=== PATIENT | female | born 1995 | race Caucasian/White ===

== ENCOUNTER 2021-01-25 09:54 | Emergency (ER) | payer SELFPAY ==
[2021-01-25 10:00] VITALS: PULSE 108; RESP 14; TEMP 36.4; O2SAT 98; BMI 43.5
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
[2021-01-25 10:30] VITALS: PULSE 103; O2SAT 98
== END 2021-01-25 11:46 | disposition home or self-care (01) ==
PROVIDERS: Emergency Provider Physician Assistant
DX: S13.9XXA Sprain of joints and ligaments of unspecified parts of neck, initial encounter (principal); V89.2XXA Person injured in unspecified motor-vehicle accident, traffic, initial encounter
CPT/HCPCS: 72125; 99282

== ENCOUNTER 2025-02-08 09:16 | Emergency (ER) | payer OTHER, SELFPAY ==
--- NOTE | 2025-02-08 09:18 | USR_ITS ---
PROCEDURE INFORMATION: Exam: US First Trimester, Transabdominal and US , Transvaginal Exam date and time: 02/08/2025 9:45 AM Age: 30 years old Clinical indication: Lmp or gestational age (in weeks): 08/19/2025; Antepartum complications; Bleeding; ; Additional info: Vaginal bleeding, early LABS AND CLINICAL REPORTS: Last menstrual period start date: Unknown Gestational age (Established): 12 w 4 d Estimated due date (Established): 08/19/2025 TECHNIQUE: Imaging protocol: Real-time transabdominal obstetrical ultrasound of the maternal pelvis and a first trimester , less than 14 weeks 0 days, with image documentation. Transvaginal imaging was used for better evaluation of the fetus, adnexa, and/or cervix. COMPARISON: [place] [id number] 01/03/2019 8:11 AM FINDINGS: GESTATION: Gestation: Single intrauterine gestation. Embryo/ cardiac activity (BPM): 163 bpm Extra-embryonic membranes/Placenta: Small subchorionic fluid collection suggestive of hemorrhage; measures 2.1 x 0.8 x 0.8 cm. BIOMETRY: Gestational age (AUA): 12 weeks 5 days MATERNAL: Uterus: Otherwise unremarkable. Cervix: Unremarkable as imaged. Right ovary/adnexa: Unremarkable. Normal spectral waveforms. Left ovary/adnexa: Obscured by lack of adequate acoustic window. Intraperitoneal space: No visible pelvic free fluid. US/US OB <= 14 weeks fetus [id number] IMPRESSION: 1. Single living intrauterine measuring 12 weeks 5 days by ultrasound. 2. Suggested small subchorionic hemorrhage. Recommend continued attention on follow-up imaging.
[2025-02-08 09:19] VITALS: BP 137/80; PULSE 105; RESP 14; TEMP 36.8; O2SAT 98; BMI 27.1
--- OUTSIDE RECORDS SUMMARY | 2025-02-08 09:23 | XMS_ITS | Continuity of Care Document ---
Author Organization BIRDIE Reji Mccullough [facility]aud[facility], [facility] ([facility]) Address [address] [place] [address] Care Team Providers Care Radio Communication Coordinator Name Role Phone TWAN WOLFE Primary Care Provider Assessment No assessment recorded. Plan of Treatment Reminders Order Date Submit Date Provider Last Modified By Organization Details Last Modified Time Details Appointments RETURN OB 2024 03:00P M Twan Wolfe MD Not available Not available Not available RETURN OB 2025 03:00P M Twan Wolfe MD Not available Not available Not available ULTRASO UND 2025 03:15P M ULTRASOUND Not available Not available Not available RETURN OB 2025 03:00P M Twan Wolfe MD Not available Not available Not available RETURN OB 2025 03:00P M Twan Wolfe MD Not available Not available Not available RETURN OB 2025 03:00P Matheus Wolfe MD Not available Not available Not available RETURN OB 2025 03:00P M Twan Wolfe MD Not available Not available Not available RETURN OB 2025 03:00P Matheus Wolfe MD Not available Not available Not available RETURN OB 2025 03:00P Matheus Wolfe MD Not available Not available Not available RETURN OB 2025 03:00P Matheus Wolfe MD Not available Not available Not available RETURN OB 2025 03:00P Matheus Wolfe MD Not available Not available Not available RETURN OB 2025 03:00P M Twan Wolfe MD Not available Not available Not available Lab None recorde d. Referral None recorde d. Procedures None recorde d. Surgeries None recorde d. Imaging None recorde d. Medication Orders None recorde d. Patient TargetsNo targets recorded. Patient InstructionsNo instructions recorded. Reason for Referral None Reported. Results Created Date Observation Date Name Description Value Unit Range Abnormal Flag Note LastModifiedBy Organization Detail LastModifiedTime 01/03/2001/01/2025 US, obste tric, 2nd trime ster No observ ation record ed. [email or web address] [address], [address], 01/02/2025 16:12:22 Result Notes None recorded. Problems Name Problem SNOMED Code Status Onset Date Resolution Date Notes Provider Name and Address Organization Details Recorded Time Hypothyroid ism 73086200 Active 2021 Xi hills [facility]CClaudia 4 15:39:59 Migraine 23432005 Active 2021 Migraine Headache Xi [facility].CClaudia 4 15:40:07 Anemia 738079303 Active 2023 CHERELLE ESTES [facility], L.L.CClaudia 4 17:20:47 Diarrhea 54235033 Active 2024 Eldon Block [address], [address] , [facility], L.L.CClaudia 5 09:29:04 26770256 Active 2024 DUSTIN Valdovinos [facility].L.CClaudia 5 12:56:44 Problem Notes None recorded. Procedures Surgical History Date Name Laterality Status Provider Name and Address Organization Details Recorded Time 01/02/20 Date of Last Pap Smear completed CHERELLE ESTES [facility] 01/01/2025 15:21:03 [facility] 08:10[facility]21 [facility] 08:10:32 Imaging Results None recorded. Procedure Notes None recorded. Medical Equipment None Reported. Allergies No known drug allergies Medications Name Sig Start Date Stop Date Status Note LastModified by Organization Details LastModified Time Vitamin C 500 mg tablet Take 1 tablet every day by oral route before meal(s), for anemia, take with Iron. 06/23 completed Not Available Not Available Not Available azithromy abraham 250 mg tablet TAKE 2 TABLETS (500 MG) BY ORAL ROUTE ONCE DAILY FOR 1 DAY THEN 1 TABLET (250 MG) BY ORAL ROUTE ONCE DAILY FOR 4 DAYS 12/04 completed Not Available Not Available Not Available fluconazo le 150 mg tablet Take 1 tablet every day by oral route for 1 day, for johny vaginiti s. May repeat in 1 week. 11/28 completed Not Available Not Available Not Available hydrocodo ne 5 mg-acetam inophen 325 mg tablet Take ONE TO TWO tablets BY MOUTH EVERY SIX hours as needed for pain 09/10 completed Not Available Not Available Not Available Nystop 100,000 unit/gram topical powder apply ONE GRAM ON SKIN TWICE DAILY 09/10 completed Not Available Not Available Not Available diphenoxy late-atro pine 2.5 mg-0.025 mg tablet TAKE 2 TABLETS BY MOUTH FOUR TIMES DAILY NEEDED FOR SEVERE DIARRHEA 11/28 completed Not Available Not Available Not Available metronida zole 500 mg tablet Take 1 tablet twice a day by oral route for 7 days. 09/24 completed Not Available Not Available Not Available sulfameth oxazole 800 mg-trimet hoprim 160 mg tablet TAKE ONE TABLET BY MOUTH TWICE DAILY 09/10 completed Not Available Not Available Not Available amoxicill in 500 mg tablet TAKE 1 TABLET BY MOUTH THREE TIMES DAILY UNTIL ALL TAKEN 09/10 completed Not Available Not Available Not Available levothyro xine 50 mcg tablet TAKE 1 TABLET BY MOUTH DAILY 12/18 completed STATES SHE DOES NOT TAKE THIS PRESCRIB ED. Not Available Not Available Not Available cephalexi n 500 mg capsule TAKE ONE CAPSULE BY MOUTH THREE TIMES DAILY; start THE DAY AFTER surgery 09/10 completed Not Available Not Available Not Available ferrous sulfate 325 mg (65 mg iron) tablet Take 1 tablet every day by oral route before meal(s), for anemia, take with vitamin C. 12/18 completed Not Available Not Available Not Available promethaz ine 25 mg tablet TAKE ONE TABLET BY MOUTH EVERY SIX hours 01/29 completed Not Available Not Available Not Available omeprazol e 20 mg capsule,d elayed release daily for upset stomach 09/10 completed Not Available Not Available Not Available [facility] Levothyro xine Sodium daily 09/10 completed duplicat e medicati on on chart Not Available Not Available Not Available Gummies active Not Available Not Available Not Available Vitals Date Recorded Body height Body mass index (BMI) Body weight Body temperature Heart rate Oxygen saturation Systolic And Diastolic Provider Name and Address Organization Details Last Updated DateTime 185.42 cm 27.2 kg/m2 24887.0 3 g 98.4 [degF] 98 /min 98 % 128/72 mm[Hg] Tanja Funk [facility] 16:44:36 Social History Question Answer Notes LastModified by Organizat ion Details LastModified Time Tobacco Smoking Status Never Smoker [facility] 09/11/2023 08:10:07 Are You Blind Or Do You Have Difficulty Seeing? No Information not available 12/18/2024 What Is Your Level Of Caffeine Consumption? Occasional Information not available 12/18/2024 Are You Deaf Or Do You Have Serious Difficulty Hearing? No Information not available 12/18/2024 What Was The Date Of Your Most Recent Tobacco Screening? 12/30/2024 [email or web address] Information not available 12/30/2024 Do You Have Difficulty Walking Or Climbing Stairs? No Information not available 12/18/2024 Sex: Unknown Functional Status Question Answer Note LastModified by Organizat ion Details LastModified Time Do you use any illicit or recreational drugs? Yes [email or web address] Information not available 09/11/2023 What is your level of alcohol consumption? None Information not available 12/18/2024 Are you currently employed? Yes Driss N[employer] Information not available 12/18/2024 Are you able to walk independently without assistance or assistive devices? YESWOREST Information not available 12/18/2024 Do you have difficulty doing errands alone? No Information not available 12/18/2024 Are you able to care for yourself independently? No Information not available 12/18/2024 Do you have difficulty dressing, bathing, grooming, or toileting? No Information not available 12/18/2024 Mental Status Question Answer Note LastModified by Organization D etails LastModified Time Do you have difficulty concentrating, remembering or making decisions? No Information no t available 12/18/2024 Family History Relationship Description Onset Age of this Age Resolved Age Notes LastModified by Organization Details LastModified Time Father Type 2 diabetes mellitus [email or web address] Not available 13:02:18 Father History of cerebrovascu lar accident [email or web address] Not available 12/18/2024 13:02:34 Medical History Condition Response Coronary Artery Disease N Other N Gout N Kidney Stones N Blood Diseases N Hyperthyroidism N Breast Cancer N Blood Transfusion N Depression N Hypothyroidism Y Lung Disease N COPD N Developmental or Behavioral Disorders N Defects or Inherited Disease N Breast Problem N Difficulty Swallowing N Anesthesia Complications N Anxiety Disorder N Meniere's disease N Muscle, Joint, or Bone Problems N Vision or Eye Problems N Arthritis N Infertility N Polyps N Cancer N Stroke N Varicosities N Endometriosis N Bladder or Kidney Problems N High Cholesterol N Liver Disease N Fibromyalgia N Headaches Y Kidney Disease N Allergies/Hayfever N Heart Problems N Ear or Hearing Problems N Fatigue Y Hospitalizations N Thyroid Problems N GI Problems N ADD/ADHD N Skin Problems N Eating Disorder N Anemia N Constipation Y Mental Illness N Ovarian Cancer N Diabetes N Bedwetting N Seizures/Epilepsy N Tuberculosis N Pain N Eczema N Diverticulitis N Abuse/Domestic Violence N Asthma N Reflux/GERD N Hepatitis N Heart Disease N Pulmonary Embolism N Pre-Eclampsia N Hypertension N Chronic Ear Infections N Osteoporosis N Chicken Pox N Autism Spectrum Disorder (ASD) N Thrombophilias N Gynecological History Statement/Question Response Date of Last Pap Smear 01/01/2025 Obstetrics History GPAL:G 2 P 1 0 0 1 Type Value Full Term 1 Living 1 Total 2 Immunizations Vaccine Type Date Status Note Provider Nam e and Address Organization Details Recorded Time HPV9 8 completed Not Available [facility] 10/14/2022 02:51:20 Tdap 9 completed Not Available [facility] 10/14/2022 02:51:20 Influenza, split virus, trivalent, preservative 8 completed Not Available [facility] 10/14/2022 02:51:20 Influenza, split virus, trivalent, preservative 9 completed Not Available [facility] 10/14/2022 02:51:20 Influenza, split virus, trivalent, preservative 7 completed Not Available [facility] 10/14/2022 02:51:20 Influenza, split virus, quadrivalent, preservative 5 completed [facility] LClaudiaLClaudiaCClaudia 09/11/2023 08:07:08 MMR 6 completed [facility], LClaudiaLClaudiaCClaudia 09/11/2023 08:07:08 Tdap 4 completed [facility], LClaudiaLClaudiaCClaudia 09/11/2023 08:07:08 DTP 6 completed [facility], LClaudiaLClaudiaCCaludia 09/11/2023 08:07:08 DTP 5 completed [facility], LClaudiaLClaudiaCClaudia 09/11/2023 08:07:08 DTP 5 completed Xi Pliler null, [facility] 09/11/2023 08:07:09 Hep B, unspecified formulation 6 completed Xi Pliler null, [facility] 09/11/2023 08:07:09 Hep B, unspecified formulation 5 completed Xi Pliler null, [facility] 09/11/2023 08:07:09 Hep B, unspecified formulation 5 completed Xi Pliler null, [facility] 09/11/2023 08:07:09 OPV, trivalent 6 completed Xi Pliler null, [facility] 09/11/2023 08:07:09 OPV, trivalent 5 completed Xi Pliler null, [facility] 09/11/2023 08:07:09 OPV, trivalent 7 completed Xi Pliler null, [facility] 09/11/2023 08:07:09 DTP-Hib 7 completed Xi Pliler null, [facility] 09/11/2023 08:07:09 Hib (PRP-T) 5 completed Xi Pliler null, [facility] 09/11/2023 08:07:09 Hib (PRP-T) 5 completed Xi Pliler null, [facility] 09/11/2023 08:07:09 Past Encounters Encounter ID Performer Location Encounter Start Date Encounter Closed Date Diagnosis/Indication Diagnosis SNOMED-CT Code Diagnosis ICD10 Code Diagnosis IMO Codes Diagnosis Note [id number] NATALIE ÁLVAREZ [facility] ([facility]) [address] [place] [id number] 11/28/2024 16:31:50 11/28/2024 18:20:20 Chronic constipation 261662674 K59.09 804564 Advised to take miralax daily as well as citrucel. Increase fiber and water intake. Patient will make a follow up with PCP to further evaluate. RTC with any new or worsening symptoms. Health Concerns Section Related Observation LastModified by Organization Detai ls LastModified Time None Recorded Concern Status LastModified by Organization Details LastModified Time None Recorded Payers Encounter Date Sequence Insurance Name Policy Number Policy Pride Covered Member ID Pride Member ID Guarantor Name 11/28/2024 1 [employer] [place] Allie Bolaños Anthony [id number] 1 Allie Bolaños Anthony OBGyn Episode Ob Episode Information Episode Created Date Number of Fetuses Patient Bloodtype Patient rh Status Prepregnancy Weight lbs Domestic Partner Domestic Partner Phone 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 Status 12/19/19 25 1 A Positive Srikatnh OPEN Fetus Data First Name Last Name Admitted to NICU Weight (g) Sex Living Outcome Pediatric Complications Fetus ID Race Codes Race Delivery Type [id number] Jm Calculation Initial Jm Date Initial Exam Date Initial Exam Provider Initial Ultrasound Date Last Menstrual Period Date Ultra Sound Weeks Gestation 12/18/2024 01/01/2025 7 Eighteen To Twenty Week Jm Update Ultra Sound Date Fundal Height At Umbil Quickening Date Ultra Sound Latest Weeks Gestation Final Jm Confirmed By Final Jm Confirmed Date Final Jm Date Ultra Sound Latest Days Gestation 01/02/20 25 7 [email or web address] 01/01/2025 06/03/2 026 1 Pre-sathish Flowsheet Flowsheet Date 12/18/2024 Cerrato Score Blood Edema Fundus Height Fundus Units Glucose Ketones Leukocytes Nitrite Labor Signs Protein Cervic Dilation Cervic Effacement Cervic Station Type Weight in lbs Pre/Post Dialysis Refused BP Diastolic BP Location Tested BP Systolic BP Type Fetus Heart Rate Present Fetus Movement Comments OBI Flowsheet Date 12/18/2024 Cerrato Score Blood Edema Fundus Height Fundus Units Glucose Ketones Leukocytes Nitrite Labor Signs Protein Cervic Dilation Cervic Effacement Cervic Station Type Weight in lbs Pre/Post Dialysis Refused BP Diastolic BP Location Tested BP Systolic BP Type Fetus Heart Rate Present Fetus Movement Comments Flowsheet Date 12/30/2024 Cerrato Score Blood Edema Fundus Height Fundus Units Glucose Ketones Leukocytes Nitrite Labor Signs Protein Cervic Dilation Cervic Effacement Cervic Station Type Weight in lbs Pre/Post Dialysis Refused Weight 203.199557301950 BP Diastolic BP Location Tested BP Systolic BP Type 64 120 Fetus Heart Rate Present Fetus Movement Comments Flowsheet Date 01/01/2025 Cerrato Score Blood Edema Fundus Height Fundus Units Glucose Ketones Leukocytes Nitrite Labor Signs Protein Cervic Dilation Cervic Effacement Cervic Station Type Weight in lbs Pre/Post Dialysis Refused BP Diastolic BP Location Tested BP Systolic BP Type Fetus Heart Rate Present Fetus Movement Comments Flowsheet Date 01/01/2025 Cerrato Score Blood Edema Fundus Height Fundus Units Glucose Ketones Leukocytes Nitrite Labor Signs Protein Cervic Dilation Cervic Effacement Cervic Station Type Weight in lbs Pre/Post Dialysis Refused Weight 205.982802070624 BP Diastolic BP Location Tested BP Systolic BP Type 80 140 sitting Fetus Heart Rate Present Fetus Movement Comments NOB, U/S of 01/01/25- EDC-08/19/25,EGA-7.4,FHT-141 N/V, LUQ pain Flowsheet Date 01/29/2025 Cerrato Score Blood Edema Fundus Height Fundus Units Glucose Ketones Leukocytes Nitrite Labor Signs Protein Cervic Dilation Cervic Effacement Cervic Station none none Negative neg Type Weight in lbs Pre/Post Dialysis Refused Weight 204.693683687533 BP Diastolic BP Location Tested BP Systolic BP Type 74 140 sitting Fetus Heart Rate Present A 176 Present Fetus Movement Comments cramping, nausea/vomiting, h eadache, sob Flowsheet Date 02/05/2025 Cerrato Score Blood Edema Fundus Height Fundus Units Glucose Ketones Leukocytes Nitrite Labor Signs Protein Cervic Dilation Cervic Effacement Cervic Station Type Weight in lbs Pre/Post Dialysis Refused BP Diastolic BP Location Tested BP Systolic BP Type Fetus Heart Rate Present Fetus Movement Comments Pt notified that she needs t o start taking Iron daily with Vitamin C Menstrual History Last Menstrual Date Menses Monthly On Bcp Conception Prior Menses Frequency Hcg Plus Date Menarche Onset Age Genetic Screening And Infection History Question Response Note Patient's Age Will Be 35 Yea rs Or Older At Estimated Date of Delivery false Thalassemia (Nepali, Welsh, Mediterranean, Or Background): MCV < 80 false Neural Tube Defect (Meningom yelocele, Spina Bifida, Or Anencephaly) false Congenital Heart Defect false Down Syndrome false Shan-Sachs (eg, Latter-Day, Cajun , Kinyarwanda-Nicaraguan) false Saira Disease false Sickle Cell Disease Or Trait () false Hemophilia Or Other Blood Disorders false Muscular Dystrophy false Cystic Fibrosis false Clio's Chorea false Intellectual Disability/Autism false If Yes, Was Person Tested For Fragile X? false Other Inherited Genetic Or C hromosomal Disorder true Sister Trisomy 13, at [facility] Maternal Metabolic Disorder (eg, Type 1 Diabetes, PKU) false Patient Or Baby's Father Had A Child With Defects Not Listed Above false Recurrent Loss, Or A Stillbirth false Medications (including Suppl ements, Vitamins, Herbs, OTC Drugs), Illicit/Recreational Drugs, Alcohol false If Yes, Agent(s) And Strength/Dosage false Any Other Genetic History false Live With Someone With TB Or Exposed To TB false Patient Or Partner Has Histo ry Of Genital Herpes false Rash Or Viral Illness Since Last Menstrual Period false History Of STD, Gonorrhea, C hlamydia, HPV, Syphilis false Other Infection History false History of HIV false History of Hepatitis false Prior GBS-infected child false Hemoglobinopathy Or Carrier false Other Structural Defect false Recent Travel History Outside of Country false Mental Retardation/Autism false Delivery Information Delivery Date Delivery Type Labor Anesthesia Weeks Gestation Incision Type Labor Labor Length Hrs Delivered By Post Complications Tubal Sterilization Discharge Date Comments Discharge Information Feeding Method Contraceptive Method Maternal HG B and HCT Levels
--- OUTSIDE RECORDS SUMMARY | 2025-02-08 09:23 | XMS_ITS | Continuity of Care Document ---
Author Organization BIRDIE Reji [facility]aud[facility]CClaud[facility], [facility] ([facility]) Address [address] [place] [address] Care Team Providers Care Control And Recovery [facility] Rescue Name Role Phone TWAN WOLFE Primary Care Provider [phone] Assessment No assessment recorded. Plan of Treatment Reminders Order Date Submit Date Provider Last Modified By Organization Details Last Modified Time Details Appointments RETURN OB 2024 03:00P M Twan Wolfe MD Not available Not available Not available RETURN OB 2025 03:00P M Twan Wlofe MD Not available Not available Not available [...] recorde d. Patient TargetsNo targets recorded. Patient Instructions Encounter Date Encounter Id Patient Instructions Last Modified By Organization Details Last Modified Time 12/30/2024 [id number] We discussed eating more protein based on what she had eaten for breakfast and staying hydrated, She feels fine now. Vitals are fine [email or web address] Not available 12/30/2024 11:20:44 Reason for Referral None Reported. Results Created Date Observation Date Name Description Value Unit Range Abnormal Flag Note LastModifiedBy Organization Detail LastModifiedTime 01/03/2001/01/2025 US, obste tric, 2nd trime ster No observ ation record ed. [email or web address] [address], [address], 01/02/2025 16:12:22 Result Notes None recorded. Problems Name Problem SNOMED Code Status Onset Date Resolution Date Notes Provider Name and Address Organization Details Recorded Time Hypothyroid ism 76909922 Active [address] [facility], LClaudiaL.CClaudia 4 15:39:59 Migraine 77368936 Active 2021 Migraine Headache [facility], L.L.CClaudia 4 15:40:07 Anemia 174536815 Active [address] [facility], L.L.CClaudia 4 17:20:47 Diarrhea 08740334 Active 2024 Eldon Block [address], [address] , [facility], LClaudiaLPedro 5 09:29:04 64867032 Active [address] [facility], [place] 12:56:44 Problem Notes None recorded. Procedures Surgical History Date Name Laterality Status Provider Name and Address Organization Details Recorded Time 01/02/20 Date of Last Pap Smear completed CHERELLEROSIE ESTES [facility], [place] 01/01/2025 15:21:03 Gastric Bypass completed [facility] [place] 09/11/2023 08:10:21 [facility] 08:10:32 Imaging Results None recorded. Procedure [...] height Body mass index (BMI) Body weight Oxygen saturation Heart rate Body temperature Systolic And Diastolic Provider Name and Address Organization Details Last Updated DateTime 185.42 cm 26.8 kg/m2 03201.6 5 g 99 % 88 /min 98.7 [degF] 120/64 mm[Hg] Angelia Ha [facility] 10:25:42 Social History Question Answer Notes LastModified by Organizat ion Details LastModified Time Tobacco Smoking Status Never Smoker [facility] 09/11/2023 08:10:07 Are You Blind Or [...] 12/18/2024 Are you currently employed? Yes [employer] Information not available 12/18/2024 Are you able [...] History Condition Response Coronary Artery Disease N Gout N Other N Blood Diseases N Kidney Stones N Hyperthyroidism N Blood Transfusion N Breast Cancer N COPD N Depression N Lung Disease N Hypothyroidism Y Defects or Inherited Disease N Developmental or Behavioral Disorders N Breast Problem N Difficulty Swallowing N Anesthesia Complications N Meniere's disease N Anxiety Disorder N Muscle, Joint, or Bone Problems N Vision or Eye Problems N Arthritis N Polyps N Infertility N Cancer N Varicosities N Stroke N Endometriosis N Bladder or Kidney Problems [...] Recorded Time HPV9 8 completed Not Available [facility] 10/14/2022 02:51:20 Tdap 9 completed Not Available [facility], [facility] 10/14/2022 02:51:20 Influenza, split virus, trivalent, preservative 8 completed Not Available [facility], [facility] 10/14/2022 02:51:20 Influenza, split virus, trivalent, preservative 9 completed Not Available [facility], [facility] 10/14/2022 02:51:20 Influenza, split virus, trivalent, preservative 7 completed Not Available [facility] 10/14/2022 02:51:20 Influenza, split virus, quadrivalent, preservative [address] [facility]2023 08:07:08 MMR [address] [facility]/11/2023 08:07:08 Tdap [address] [facility] 09/11/2023 08:07:08 DTP [address] [facility] 09/11/2023 08:07:08 DTP 5 completed Xi Pliler null, [facility] 09/11/2023 08:07:08 DTP 5 completed Xi Pliler null, [facility] 09/11/2023 08:07:09 Hep B, unspecified formulation 6 completed Xi Pliler null, [facility] 09/11/2023 08:07:09 Hep B, unspecified formulation 5 completed Xi Pliler null, [facility] 09/11/2023 08:07:09 Hep B, unspecified formulation 5 completed Xi Pliler null, [facility] 09/11/2023 08:07:09 OPV, trivalent 6 completed Xi Pliler null, [facility] 09/11/2023 08:07:09 OPV, trivalent 5 completed Xi Pliler null, [facility] 09/11/2023 08:07:09 OPV, trivalent 7 completed Xi Pliler null, [facility] 09/11/2023 08:07:09 DTP-Hib 7 completed Xi Pliler null, [facility] 09/11/2023 08:07:09 Hib (PRP-T) 5 completed Xi Pliler null, [facility] 09/11/2023 08:07:09 Hib (PRP-T) 5 completed Xi Pliler null, [facility] 09/11/2023 08:07:09 Past Encounters Encounter ID Performer Location Encounter Start Date Encounter Closed Date Diagnosis/Indication Diagnosis SNOMED-CT Code Diagnosis ICD10 Code Diagnosis IMO Codes Diagnosis Note [id number] Twan Wolfe MD [facility] ([facility]) [address] [place] [address] 12/18/2024 12:33:31 12/18/2024 13:40:28 Normal [id number] Z34.80 [id number] KWADWO SIFUENTES APRN [facility] ([facility]) [address] [place] [address] 12/30/2024 10:15:48 12/30/2024 11:21:42 Health Concerns Section Related Observation LastModified by Organization Detai ls LastModified Time None Recorded Concern Status LastModified by Organization Details LastModified Time None Recorded Payers Encounter Date Sequence Insurance Name Policy Number Policy Pride Covered Member ID Pride Member ID Guarantor Name 12/30/2024 1 ALLYN MICHELLE [employer] Allie Cruz [id number] Allie Cruz Notes Date Note Type Note Provider Name and Address Organization Details Recorded Time 12/30/2024 text/html walk in30 minutes ago, got cold sweats, dizzy, arms tingle/pain shoulders down- all resolved nowPt asked to check BS, 80- breakfast 0630 KWADWO SIFUENTES APRN [address] [place] [address], [phone], [facility], L.LClaudiaCClaudia 12/30/2024 11:20:57 OBGyn Episode Ob Episode Information Episode Created Date Number of Fetuses Patient Bloodtype Patient rh Status Prepregnancy Weight lbs Domestic Partner Domestic Partner Phone Father Name 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 Status 12/19/19 25 1 A Positive Srikanth OPEN Fetus Data First Name Last Name Admitted to NICU Weight (g) Sex Living Outcome Pediatric Complications Fetus ID Race Codes Race Delivery Type [id number] Jm Calculation Initial Jm Date Initial Exam [...] Latest Days Gestation 01/02/20 25 7 [email or web address] 01/01/202503/2 026 1 Pre-sathish Flowsheet Flowsheet Date 12/18/2024 [...] Weight in lbs Pre/Post Dialysis Refused Weight 203.735064825737 BP Diastolic BP Location Tested BP Systolic [...] Weight in lbs Pre/Post Dialysis Refused Weight 205.400663159491 BP Diastolic BP Location Tested BP Systolic BP Type 80 140 sitting Fetus Heart Rate Present Fetus Movement Comments NOB, U/S of 01/01/25- EDC-08/19/25,EGA-7.4,FHT-141 N/V, LUQ pain Flowsheet Date 01/29/2025 Cerrato Score Blood Edema Fundus Height Fundus Units Glucose Ketones Leukocytes Nitrite Labor Signs Protein Cervic Dilation Cervic Effacement Cervic Station none none Negative neg Type Weight in lbs Pre/Post Dialysis Refused Weight 204.458631068950 BP Diastolic BP Location Tested BP Systolic BP Type 74 140 sitting Fetus Heart Rate Present A 176 Present Fetus Movement Comments cramping, nausea/vomiting, h ramiro garcia Flowsheet Date 02/05/2025 Cerrato Score Blood Edema [...] At Estimated Date of Delivery false Thalassemia (Romanian, Kinyarwanda, Mediterranean, Or Background): MCV < 80 false Neural Tube Defect (Meningom yelocele, Spina Bifida, Or Anencephaly) false Congenital Heart Defect false Down Syndrome false Shan-Sachs (eg, Baptism, Cajun , Australian-Wentworth) false Saira Disease false Sickle Cell Disease Or Trait () false Hemophilia Or Other Blood Disorders false Muscular Dystrophy false Cystic Fibrosis false [place]'s Chorea false Intellectual Disability/Autism false If Yes, Was Person Tested For Fragile X? false Other Inherited Genetic Or C hromosomal Disorder true Sister Trisomy 13, at [facility] Maternal Metabolic Disorder (eg, Type 1 Diabetes, [...]
--- OUTSIDE RECORDS SUMMARY | 2025-02-08 09:23 | XMS_ITS | Continuity of Care Document ---
Author Organization BIRDIE Mccullough [facility], L.LClaudiaCClaudia, [facility] ([facility]) Address [address] [place] [address] Care Team Providers Care Home Help Aide Name Role Phone TWAN COLLAZO Primary Care Provider [phone] Assessment No assessment recorded. Plan of Treatment Reminders Order Date Submit Date Provider Last Modified By Organization Details Last Modified Time Details Appointments RETUR N OB 2024 03:00P M Twan Collazo MD Not available Not available Not available RETUR N OB 2025 03:00P M Twan Collazo MD Not available Not available Not available ULTRA SOUND 2025 03:15P M ULTRASOUND Not available Not available Not available RETUR N OB 2025 03:00P M Twan Collazo MD Not available Not available Not available RETUR N OB 2025 03:00P M Twan Collazo MD Not available Not available Not available RETUR N OB 2025 03:00P M Twan Collazo MD Not available Not available Not available RETUR N OB 2025 03:00P M Twan Collazo MD Not available Not available Not available RETUR N OB 2025 03:00P Matheus Collazo MD Not available Not available Not available RETUR N OB 2025 03:00P M Twan Collazo MD Not available Not available Not available RETUR N OB 2025 03:00P M Twan Collazo MD Not available Not available Not available RETUR N OB 2025 03:00P Matheus Collazo MD Not available Not available Not available RETUR N OB 2025 03:00P Matheus Collazo MD Not available Not available Not available Lab None recor ded. Referral None recor ded. Procedures None recor ded. Surgeries None recor ded. Imaging US, obste tric, trans vagin al - [id number] 2024 025 [facility], [address] [place], [address], 01/07/2025 12:38:01 Medication Orders None recor ded. Patient TargetsNo targets recorded. Patient InstructionsNo instructions recorded. Reason for Referral None Reported. Results Created Date Observation Date Name Description Value Unit Range Abnormal Flag Note LastModifiedBy Organization Detail LastModifiedTime 01/02/2001/03/2025 HIV 1/2 ANTIG EN/AN TIBOD Y,FOU RTH GENER ATION W/RFL HIV final interpretati on HIV NEGATI VE normal HIV-1 antig en and HIV-1 /HIV- 2 antib odies were not detec amandeep. There is no labor atory evide nce of HIV infec tion. Not Available [address] [address] [place], [address], 01/03/2025 23:56:29 01/02/2001/03/2025 HIV 1/2 ANTIG EN/AN TIBOD Y,FOU RTH GENER ATION W/RFL HIV Ag/Ab, screen NON-RE ACTIVE non-re active normal Not Available [address] [address] [place], [address], 01/03/2025 23:56:29 01/02/2001/03/2025 URINA LYSIS , COMPL ETE color YELLOW yellow normal Not Available [facility] [address] [address] [place], [address], 01/03/2025 23:56:29 01/02/2001/03/2025 URINA LYSIS , COMPL ETE appearance CLEAR clear normal Not Available [facility] [address], [place], [address], 01/03/2025 23:56:29 01/02/2001/03/2025 URINA LYSIS , COMPL ETE specific gravity 1.024 1.001- 1.035 normal Not Available [address], [address], 01/03/2025 23:56:29 01/02/2001/03/2025 URINA LYSIS , COMPL ETE pH < OR = 5.0 5.0-8. 0 abnormal Not Available [address], [address], 01/03/2025 23:56:29 01/02/2001/03/2025 URINA LYSIS , COMPL ETE glucose NEGATI VE negati ve normal Not Available [address], [address], 01/03/2025 23:56:29 01/02/2001/03/2025 URINA LYSIS , COMPL ETE bilirubin NEGATI VE negati ve normal Not Available [address], [address], 01/03/2025 23:56:29 01/02/2001/03/2025 URINA LYSIS , COMPL ETE ketones NEGATI VE negati ve normal Not Available [address], [address], 01/03/2025 23:56:29 01/02/2001/03/2025 URINA LYSIS , COMPL ETE occult blood NEGATI VE negati ve normal Not Available [address], [address], 01/03/2025 23:56:29 01/02/2001/03/2025 URINA LYSIS , COMPL ETE protein NEGATI VE negati ve normal Not Available [address], [place], [address], 01/03/2025 23:56:29 01/02/2001/03/2025 URINA LYSIS , COMPL ETE nitrite NEGATI VE negati ve normal Not Available [address], [address], 01/03/2025 23:56:29 01/02/2001/03/2025 URINA LYSIS , COMPL ETE leukocyte esterase NEGATI VE negati ve normal Not Available [address], [address], 01/03/2025 23:56:29 01/02/2001/03/2025 URINA LYSIS , COMPL ETE WBC NONE SEEN /hpf < or = 5 normal Not Available [address], [address], 01/03/2025 23:56:29 01/02/2001/03/2025 URINA LYSIS , COMPL ETE RBC NONE SEEN /hpf < or = 2 normal Not Available [address], [address], 01/03/2025 23:56:29 01/02/2001/03/2025 URINA LYSIS , COMPL ETE squamous epithelial cells 0-5 /hpf < or = 5 Not Available [address], [address], 01/03/2025 23:56:29 01/02/2001/03/2025 URINA LYSIS , COMPL ETE bacteria NONE SEEN /hpf none seen normal Not Available [address], [address], 01/03/2025 23:56:29 01/02/2001/03/2025 URINA LYSIS , COMPL ETE hyaline cast NONE SEEN /lpf none seen normal Not Available [address], [address], 01/03/2025 23:56:29 01/02/2001/03/2025 URINA LYSIS , COMPL ETE note This urine was dorothy zed for the prese nce of WBC, RBC, bacte roslyn, casts , and other forme d eleme nts. Only those eleme nts seen were repor amandeep. Not Available [address], [address], 01/03/2025 23:56:29 01/02/20 25 01/03/2025 CBC (INCL UDES DIFF/ PLT) white blood cell count 9.6 thous and/u L 3.8-10 .8 normal Not Available [address], [address], 01/03/2025 23:56:30 01/02/2001/03/2025 CBC (INCL UDES DIFF/ PLT) red blood cell count 4.45 mariely on/uL 3.80-5 .10 normal Not Available [address], [address], 01/03/2025 23:56:30 01/02/20 25 01/03/2025 CBC (INCL UDES DIFF/ PLT) hemoglobin 9.8 g/dL 11.7-1 5.5 low Not Available [facility] [address], [address], 01/03/2025 23:56:30 01/02/20 25 01/03/2025 CBC (INCL UDES DIFF/ PLT) hematocrit 34.4 % 35.0-4 5.0 low Not Available [facility] [address], [address], 01/03/2025 23:56:30 01/02/20 25 01/03/2025 CBC (INCL UDES DIFF/ PLT) MCV 77.3 fL 80.0-1 00.0 low Not Available [facility] [place], [address], 01/03/2025 23:56:30 01/02/2001/03/2025 CBC (INCL UDES DIFF/ PLT) MCH 22.0 pg 27.0-3 3.0 low Not Available [facility] [address], [address], 01/03/2025 23:56:30 01/02/2001/03/2025 CBC (INCL UDES DIFF/ PLT) MCHC 28.5 g/dL 32.0-3 6.0 low For adult s, a sligh t decre ase in the calcu lated MCHC value (in the range of 30 to 32 g/dL) is most likel y not clini denisha signi fican t; abdirahman er, it shoul d be inter prete d with cauti on in [facility] n with other red cell oksana eters and the patie nt's clini la condi tion. Not Available [address], [address], 01/03/2025 23:56:30 01/02/2001/03/2025 CBC (INCL UDES DIFF/ PLT) RDW 14.8 % 11.0-1 5.0 normal Not Available [facility] [address], [address], 01/03/2025 23:56:30 01/02/2001/03/2025 CBC (INCL UDES DIFF/ PLT) platelet count 465 thous and/u L 140-40 0 high Not Available [facility] [address], [address], 01/03/2025 23:56:30 01/02/2001/03/2025 CBC (INCL UDES DIFF/ PLT) MPV 9.5 fL 7.5-12 .5 normal Not Available [facility] [address], [address], 01/03/2025 23:56:30 01/02/20 25 01/03/2025 CBC (INCL UDES DIFF/ PLT) absolute neutrophils 6845 cells /uL 1500-7 800 normal Not Available [address], [address], 01/03/2025 23:56:30 01/02/2001/03/2025 CBC (INCL UDES DIFF/ PLT) absolute lymphocytes 1901 cells /uL 850-39 00 normal Not Available [address], [address], 01/03/2025 23:56:30 01/02/2001/03/2025 CBC (INCL UDES DIFF/ PLT) absolute monocytes 787 cells /uL 200-95 0 normal Not Available [address], [address], 01/03/2025 23:56:30 01/02/20 25 01/03/2025 CBC (INCL UDES DIFF/ PLT) absolute eosinophils 19 cells /uL 15-500 normal Not Available [address], [address], 01/03/2025 23:56:30 01/02/20 25 01/03/2025 CBC (INCL UDES DIFF/ PLT) absolute basophils 48 cells /uL 0-200 normal Not Available [address], [address], 01/03/2025 23:56:30 01/02/2001/03/2025 CBC (INCL UDES DIFF/ PLT) neutrophils 71.3 % normal Not Available [address], [address], 01/03/2025 23:56:30 01/02/20 25 01/03/2025 CBC (INCL UDES DIFF/ PLT) lymphocytes 19.8 % normal Not Available [address], [address], 01/03/2025 23:56:30 01/02/20 25 01/03/2025 CBC (INCL UDES DIFF/ PLT) monocytes 8.2 % normal Not Available [facility] [address], [address], 01/03/2025 23:56:30 01/02/20 25 01/03/2025 CBC (INCL UDES DIFF/ PLT) eosinophils 0.2 % normal Not Available [facility] [address], [address], 01/03/2025 23:56:30 01/02/2001/03/2025 CBC (INCL UDES DIFF/ PLT) basophils 0.5 % normal Not Available [facility] [address], [address], 01/03/2025 23:56:30 01/02/2001/03/2025 HEPAT ITIS B SURFA CE ANTIG EN W/REF L CONFI RM hepatitis B surface antigen NON-RE ACTIVE non-re active normal For addit ional infor brooke laughlin e refer to http: //[facility] stdia gnost ics.c om/fa q/FAQ (This link is being provi ded for infor cecilia isbell/ educa latha l purpo ses only. ) Not Available [address], [address], 01/03/2025 23:56:30 01/02/2001/03/2025 HEPAT ITIS C AB W/REF L TO HCV RNA, QN, PCR hepatitis C antibody NON-RE ACTIVE non-re active normal HCV antib artemio was non-r eacti ve. There is no labor atory evide nce of HCV infec tion. In most cases , no furth er actio n is requi red. Howev er, if recen t HCV expos ure is suspe cted, a test for HCV RNA (test code 15481 ) is sugge sted. For addit ional infor cecilia rivera pleas e refer to http: //[facility] stdia gnost ics.c om/fa q/FAQ 22v1 (This link is being provi ded for infor cecilia isbell/ educa latha l purpo ses only. ) Not Available [facility] [address] [address] [place], [address], 01/03/2025 23:56:31 01/02/2001/03/2025 RUBEL LA AB (IGG) , IMMUN E STATU S rubella Ab (IgG), immune status 3.83 index normal Index Inter preta tion ----- ----- ----- ---- <0.90 Not consi stent with immun ity 0.90- 0.99 Equiv ocal > or = 1.00 Consi stent with immun ity The prese nce of rubel la IgG antib artemio sugge sts immun izati on or past or curre nt infec tion with rubel la virus . Not Available [facility] [address] [address] [place], [address], 01/03/2025 23:56:31 01/02/2001/03/2025 RPR (DX) W/REF L TITER AND T. PALLI DUM AB, IA RPR (DX) w/refl titer and confirmatory testing NON-RE ACTIVE non-re active normal No labor atory evide nce of syphi lis. If recen t expos ure is suspe cted, submi t a new sampl e in 2-4 weeks . Not Available [address] [address] [place], [address], 01/03/2025 23:56:31 01/02/2001/03/2025 ANTIB ARTEMIO SCREE N, RBC W/REF L ID, TITER AND AG antibody screen, RBC w/refl id, titer and Ag NO ANTIBO DIES DETECT ED normal Refer ence range No antib odies detec amandeep This assay is a scree zulma test for the detec tion of red blood cell antib odies . The test is not to be used for pretr ansfu dionne scree zulma or for the medic al manag ement of an alloi mmuni zed pregn jaye. Not Available [address], [address], 01/03/2025 23:56:32 01/02/2001/03/2025 ABO GROUP AND RH TYPE ABO group A Not Available [facility] [address] [address] [place], [address], 01/03/2025 23:56:32 01/02/2001/03/2025 ABO GROUP AND RH TYPE Rh type RH(D) POSITI VE For addit ional infor brooke laughlin refer to http: //[facility] [place] [facility] gnost ics.c om/fa q/FAQ 111 (This link is being provi ded for infor cecilia isbell/ jonathan dickson purpo ses only. ) Not Available [facility] [address] [address] [address] , [place], [address], 01/03/2025 23:56:32 01/02/2001/03/2025 DRUG MONIT OR, PANEL 1, SCREE N, URINE amphetamines NEGATI VE NG/mL <500 See Note A See Note A Not Available [facility] [address] [address] [place], [address], 01/03/2025 23:56:33 01/02/2001/03/2025 DRUG MONIT OR, PANEL 1, SCREE N, URINE barbiturates NEGATI VE NG/mL <300 See Note A See Note A Not Available [facility] [address] [address] [place], [address], 01/03/2025 23:56:33 01/02/2001/03/2025 DRUG MONIT OR, PANEL 1, SCREE N, URINE benzodiazepi kristen NEGATI VE NG/mL <100 See Note A See Note A Not Available [facility] [address] [address] [place], [address], 01/03/2025 23:56:33 01/02/2001/03/2025 DRUG MONIT OR, PANEL 1, SCREE N, URINE cocaine metabolite NEGATI VE NG/mL <150 See Note A See Note A Not Available [address] [address] [address], [place], [address], 01/03/2025 23:56:33 01/02/2001/03/2025 DRUG MONIT OR, PANEL 1, SCREE N, URINE marijuana metabolite NEGATI VE NG/mL <20 See Note A See Note A Not Available [facility] [address] [address] [address], [place], [address], 01/03/2025 23:56:33 01/02/2001/03/2025 DRUG MONIT OR, PANEL 1, SCREE N, URINE methadone metabolite NEGATI VE NG/mL <100 See Note A See Note A Not Available [facility] [address] [address] [address], [place], [address], 01/03/2025 23:56:33 01/02/2001/03/2025 DRUG MONIT OR, PANEL 1, SCREE N, URINE opiates NEGATI VE NG/mL <100 See Note A See Note A Not Available [facility] [address] [address] [address], [place], [address], 01/03/2025 23:56:33 01/02/2001/03/2025 DRUG MONIT OR, PANEL 1, SCREE N, URINE oxycodone NEGATI VE NG/mL <100 See Note A See Note A Not Available [facility] [address] [address] [address], [place], [address], 01/03/2025 23:56:33 01/02/2001/03/2025 DRUG MONIT OR, PANEL 1, SCREE N, URINE phencyclidin e NEGATI VE NG/mL <25 See Note A See Note A Not Available [address] [address] [address], [place], [address], 01/03/2025 23:56:33 01/02/2001/03/2025 DRUG MONIT OR, PANEL 1, SCREE N, URINE creatinine 112.7 mg/dL > or = 20.0 Not Available [address] [address] [place], [address], 01/03/2025 23:56:33 01/02/2001/03/2025 DRUG MONIT OR, PANEL 1, SCREE N, URINE pH 4.9 4.5-9. 0 Not Available [facility] [address] [address] [place], [address], 01/03/2025 23:56:33 01/02/2001/03/2025 DRUG MONIT OR, PANEL 1, SCREE N, URINE oxidant NEGATI VE mcg/m L <200 Not Available [address] [address] [place], [address], 01/03/2025 23:56:33 01/02/2001/03/2025 DRUG MONIT ORING TEMPL ATE notes and comments This drug testi ng is for medic al treat ment only. Dorothy sis was perfo rmed as non-f orens ic testi ng and these resul ts shoul d be used only by healt hcare provi ders to rende r diagn osis or treat ment, or to monit or progr ess of medic al condi tions . Note A: The resul ts are presu mptiv e; based only on scresean leong metho ds, and they have not been confi rmed by a defin itive metho d. Healt hcare Provi ders needi ng Inter preta tion isatu tance , pleas e conta ct us at 1.877 .40.R XTOX (1.87 7.407 .9869 ) M-F, 8am to 10pm EST Not Available [address] [address] [place], [address], 01/03/2025 23:56:33 01/02/2001/03/2025 CULTU RE, URINE , ROUTI NE culture, urine, routine SEE NOTE CULTU RE, URINE , ROUTI NE Micro Numbe r: [id number] Test Statu s: Final Speci men Sourc e: Urine , clean catch Speci men Quali ty: Adequ ate Resul t: No Growt h Not Available [facility] [address] [address], [place], [address], 01/03/2025 23:56:33 01/03/2001/01/2025 US, obste tric, 2nd trime ster No observ ation record ed. [email or web address] [facility] [address] [place], [address], 01/02/2025 16:12:22 Result Notes None recorded. Problems Name Problem SNOMED Code Status Onset Date Resolution Date Notes Provider Name and Address Organization Details Recorded Time Hypothyroid ism 67478504 Active 2021 Xi hills [facility] 4 15:39:59 Migraine 86947095 Active 2021 Migraine Headache Xi [facility] 4 15:40:07 Anemia 999895382 Active 2023 CHERELLE hills [facility] 4 17:20:47 Diarrhea 84186224 Active 2024 Eldon Block DO [address] [place] [address], [address], [facility]ia 5 09:29:04 01292397 Active 2024 DUSTIN Valdovinos [facility] 5 12:56:44 Problem Notes None recorded. Procedures Surgical History Date Name Laterality Status Provider Name and Address Organization Details Recorded Time 01/02/20 Date of Last Pap [facility]ear [facility] 15:21:03 [facility] 08[facility]10:21 [facility] 08:10:32 Imaging Results None [...] (BMI) Body weight Oxygen saturation Heart rate Respiratory rate Body temperature Systolic And Diastolic Provider Name and Address Organization Details Last Updated DateTime 185.42 cm 27 kg/m2 71751.4 4 g 96 % 74 /min 18 /min 98.5 [degF] 140/80 mm[Hg] DUSTIN EID [facility] 16:07:27 Social History Question Answer Notes LastModified by Organizat ion Details LastModified Time Tobacco Smoking Status Never Smoker [facility] 09/11/2023 08:10:07 Are You Blind Or [...] Diseases N Kidney Stones N Hyperthyroidism N Breast Cancer N Blood Transfusion N Depression N Lung Disease N Hypothyroidism Y COPD N Developmental or Behavioral Disorders N [...] Time HPV9 8 completed Not Available [facility] 10/14/2022 02:51:20 Tdap 9 completed Not Available [facility] 10/14/2022 02:51:20 Influenza, split virus, trivalent, preservative 8 completed Not Available [facility] 10/14/2022 02:51:20 Influenza, split virus, trivalent, preservative 9 completed Not Available [facility] 10/14/2022 02:51:20 Influenza, split virus, trivalent, preservative 7 completed Not Available [facility] 10/14/2022 02:51:20 Influenza, split virus, quadrivalent, preservative 5 completed [facility] L[facility]aud[facility] 09/11/2023 08:07:08 MMR 6 completed [facility] 09/11/2023 08:07:08 Tdap 4 completed [facility] LClaudiaLClaudiaCClaudia 09/11/2023 08:07:08 DTP 6 completed [facility] LClaudiaLClaudiaCClaudia 09/11/2023 08:07:08 DTP 5 completed [facility] LClaudiaLClaudiaCClaudia 09/11/2023 08:07:08 DTP 5 completed Xi Pliler null, [facility] 09/11/2023 08:07:09 Hep B, unspecified formulation 6 completed Xi Pliler null, [facility] 09/11/2023 08:07:09 Hep B, unspecified formulation 5 completed Xi Pliler null, [facility] 09/11/2023 08:07:09 Hep B, unspecified formulation 5 completed Xi Pliler null, [facility] 09/11/2023 08:07:09 OPV, trivalent 6 completed Xi Pliler null, [facility] 09/11/2023 08:07:09 OPV, trivalent 5 completed Xi Pliler null, [facility] 09/11/2023 08:07:09 OPV, trivalent 7 completed Xi Pliler null, [facility] 09/11/2023 08:07:09 DTP-Hib 7 completed Xi Pliler null, [facility] 09/11/2023 08:07:09 Hib (PRP-T) 5 completed Xi Pliler null, [facility] 09/11/2023 08:07:09 Hib (PRP-T) 5 completed Xi Pliler null, [facility] 09/11/2023 08:07:09 Past Encounters Encounter ID Performer Location Encounter Start Date Encounter Closed Date Diagnosis/Indication Diagnosis SNOMED-CT Code Diagnosis ICD10 Code Diagnosis IMO Codes Diagnosis Note [id number] Twan Collazo MD [facility] ([facility]) [address] [place] [address] 12/18/2024 12:33:31 12/18/2024 13:40:28 Normal [id number] Z34.80 [id number] KWADWO SIFUENTES APRN [facility] ([facility]) [address] [place] [address] 12/30/2024 10:15:48 12/30/2024 11:21:42 [id number] Twan Collazo MD [facility] ([facility]) [address] [place] [address] 01/01/2025 09:29:23 01/01/2025 15:12:26 Normal [id number] Z34.80 [id number] Twan Collazo MD [facility]) [address] [place] [address] 01/01/2025 14:44:10 02/04/2025 12:10:10 Normal in multigravida 2187694867 76896 Z34.80 [id number] Health Concerns Section Related Observation LastModified by Organization Detai ls LastModified Time None Recorded Concern Status LastModified by Organization Details LastModified Time None Recorded Payers Encounter Date Sequence Insurance Name Policy Number Policy Pride Covered Member ID Pride Member ID Guarantor Name 01/01/2025 1 ALLYN MICHELLE FROM [facility] (EPO) Allie Cruz [id number] Allie Cruz Notes Date Note Type Note Provider Name and Address Organization Details Recorded Time 01/01/2025 text/html jr ob routineReported by PatientHPIFor associated symptoms, patient reportscramping (luq),nausea, andemesisbut reportsno abdominal pain,no bleeding,no vaginal discharge,no vaginal/vulvar itching or irritation,no dysuria,no frequency,no urgency,no hematuria,no fever,no constipation,no diarrhea/loose stool,no edema,no visual changes,no headache,no dizziness,no breathlessness, andno hyperreflexia.Pt denies any alcohol, tobacco or drug use. Not Available Not Available Not Available OBGyn Episode Ob Episode Information Episode Created Date Number of Fetuses Patient Bloodtype Patient rh Status Prepregnancy Weight lbs Domestic Partner Domestic Partner Phone Father Name Commodity Director Status 12/19/19 25 1 A Positive Srikanth OPEN Fetus Data First Name Last Name Admitted to NICU Weight (g) Sex Living Outcome Pediatric Complications Fetus ID Race Codes Race Delivery Type [id number] Jm Calculation Initial Jm Date Initial Exam [...] Latest Days Gestation 01/02/20 25 7 [email or web address] 01/01/202508/19/ 026 1 Pre- Flowsheet Flowsheet Date 12/18/2024 Cerrato Score Blood [...] Weight in lbs Pre/Post Dialysis Refused Weight 203.452282015579 BP Diastolic BP Location Tested BP Systolic [...] Weight in lbs Pre/Post Dialysis Refused Weight 205.969361790101 BP Diastolic BP Location Tested BP Systolic BP Type 80 140 sitting Fetus Heart Rate Present Fetus Movement Comments NOB, U/S of 01/01/25- EDC-08/19/25,EGA-7.4,FHT-141 N/V, LUQ pain Flowsheet Date 01/29/2025 Cerrato Score Blood Edema Fundus Height Fundus Units Glucose Ketones Leukocytes Nitrite Labor Signs Protein Cervic Dilation Cervic Effacement Cervic Station none none Negative neg Type Weight in lbs Pre/Post Dialysis Refused Weight 204.703762872514 BP Diastolic BP Location Tested BP Systolic [...] At Estimated Date of Delivery false Thalassemia (Slovak, Mohawk, Mediterranean, Or Background): MCV < 80 false Neural Tube Defect (Meningom yelocele, Spina Bifida, Or Anencephaly) false Congenital Heart Defect false Down Syndrome false Shan-Sachs (eg, Mormonism, Cajun , Chinese-Spanish) false Saira Disease false Sickle Cell Disease Or Trait () false Hemophilia Or Other Blood Disorders false Muscular Dystrophy false Cystic Fibrosis false Bety's Chorea false Intellectual Disability/Autism false If Yes, Was Person Tested For Fragile X? false Other Inherited Genetic Or C hromosomal Disorder true Sister Trisomy 13, at b irth Maternal Metabolic Disorder (eg, Type 1 Diabetes, [...]
--- OUTSIDE RECORDS SUMMARY | 2025-02-08 09:23 | XMS_ITS | Clinical Summary ---
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 Active phentermine (ADIPEX P) 37.5 mg tabletIndication s:Morbid obesity with body mass index of 40.0-49.9 (CMS/[facility]) Take 1 Tablet (37.5 mg) by mouth daily before breakfast. 30 Tablet 1 10/31/2019 Active Active Problems Problem Noted Date Diagnosed Date Morbid obesity with body mass index of 40.0-49.9 10/29/2019 Immunizations Immunization Administration Dates Next Due Influenza Vaccine Quad Split 3+ Yrs Im 5 Family History Medical History Relation Name Comments Diabetes Father Diabetes Maternal Grandfather Diabetes Maternal Grandmother Hypertension Mother Diabetes Paternal Grandfather Diabetes Paternal Grandmother Relation Name Status Comments Father Alive Maternal Grandfather Maternal Grandmother Mother Alive Paternal Grandfather Paternal Grandmother Social History Tobacco Use Types Packs/Day Years Used Date Smoking Tobacco: Never Smokeless Tobacco: Never Alcohol Use Standard Drinks/Week Comments Yes 0 (1 standard drink = 0.6 oz pur e alcohol) occasionally Comments No Sex and Gender Information Value Date Recorded Sex Assigned at Not on file Legal Sex Female 10:35 AM CDT Gender Identity Not on file Sexual Orientation Not on file Last Filed Vital Signs Vital Sign Reading Time Taken Comments Blood Pressure 124/72 10/29/2019 10:37 AM CDT Pulse 88 10/29/2019 10:37 AM CDT Temperature 36.7 C (98 F) 10/29/2019 10:37 AM CDT Respiratory Rate 14 10/29/2019 10:3 7 AM CDT Oxygen Saturation 97% 10/29/2019 10: 37 AM CDT Room Air Inhaled Oxygen Concentration - - Weight 144.3 kg (318 lb 3.2 oz) 020 10:37 AM CDT Height 185.4 cm (6' 1 ) 10/29/2019 10:3 7 AM CDT Body Mass Index 41.98 10/29/2019 10:37 AM CDT Plan of Treatment Health Maintenance Due Date Last Done Comments DTAP/TDAP/TD VACCINES (1 - Tdap) 2013 HEPATITIS B VACCINES (1 of 3 - 19+ 3-dose series) 09/2012 HPV/Cotest (21-29) 2015 HPV VACCINES (1 - 3-dose SCDM series) 2021 CERVICAL CANCER SCREENING 01/24/2024 HPV/Cotest (30-65) 01/24/2024 PAP SMEAR 01/24/2024 INFLUENZA VACCINE (#1) 2024 01/13/2015 Insurance [facility] Member Subscriber Plan / Payer (Ef fective 2017-Present) Name:Allie Crzu Mami Relation to Subscriber:Self Name:Allie Cruz Payer ID:Not on file Type:[employer] Address: [address] [place] [address] * Guarantor: Allie Cruz Account Type Relation to Patient Date of Phone Billing Address [employer]ability Self 1995 [address] [place] [address] [facility]
--- OUTSIDE RECORDS SUMMARY | 2025-02-08 09:23 | XMS_ITS | Clinical Summary ---
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 30 Tablet 1 10/31/2019 Active levothyroxine sodium (LEVOTHYROXINE ORAL) Take by mouth. 10/29/2019 Active Active Problems Problem Noted Date Diagnosed [...] drink = 0.6 oz pur e alcohol) Comments Unknown Sex and Gender Information Value Date Recorded Sex Assigned at Not on file Legal Sex Female 5:27 AM HAY BALER Gender Identity Not on file Sexual Orientation Not on file Last Filed Vital Signs Vital Sign Reading Time Taken Comments Blood Pressure 124/72 10/29/2019 10:37 AM CDT Pulse 88 10/29/2019 10:37 AM CDT Temperature 36.7 C (98 F) 10/29/2019 10:37 AM CDT Respiratory Rate 14 10/29/2019 10:3 7 AM CDT Oxygen Saturation - - Inhaled Oxygen Concentration - - Weight 144.3 [...]
--- OUTSIDE RECORDS SUMMARY | 2025-02-08 09:23 | XMS_ITS | Continuity of Care Document ---
Author Organization BIRDIE Reji Mccullough [facility], [facility]audiaC[facility]aud[facility], [facility] ([facility]) Address [address] [place] [address] Care Team Providers Care Substation Operator Chief Name Role Phone TWAN WOLFE Primary Care Provider Assessment Encounter Date Assessment Date Assessment LastModified by Organization Details LastModified Time 12/18/2024 12/18/2024 Unsure of lmp [email or web address] Not available 12/18/2024 13:20:29 Plan of Treatment Reminders Order Date Submit [...] recorde d. Surgeries None recorde d. Imaging US, obstetr ic, 1st trimest er 2024 025 [facility], [address] [place], [address], 12/22/2024 09:59:49 Medication Orders None recorde d. Patient TargetsNo targets recorded. Patient InstructionsNo instructions recorded. Reason for Referral None Reported. Results Created Date Observation Date Name Description Value Unit Range Abnormal Flag Note LastModifiedBy Organization Detail LastModifiedTime 01/03/20 25 01/01/2025 US, obste tric, 2nd trime ster No observ ation record ed. [email or web address] [address], [address], 01/02/2025 16:12:22 Result Notes None recorded. Problems Name Problem SNOMED Code Status Onset Date Resolution Date Notes Provider Name and Address Organization Details Recorded Time Hypothyroid ism 33625874 Active 2021 [facility], LClaudiaLPedro 4 15:39:59 Migraine 54652731 Active 2021 Migraine Headache [facility], LClaudiaLClaudiaCClaudia 4 15:40:07 Anemia 844322596 Active 2023 [facility] 17:20:47 Diarrhea 30087512 Active 2024 Eldon Block DO [address] [place] [address], [id number] , [facility], [place] 09:29:04 71076668 Active [address] [facility], [facility], [place] 12:56:44 Problem Notes None recorded. Procedures Surgical History Date Name Laterality Status Provider Name and Address Organization Details Recorded Time 01/02/20 Date of Last Pap Smear completed CHERELLE ESTES [facility], [place] 01/01/2025 15:21:03 Gastric Bypass completed [facility], [place] 09/11/2023 08:10:21 abdominoplasty completed [facility], [place] 09/11/2023 08:10:32 Imaging Results None recorded. Procedure [...] Not Available Vitals Date Recorded Body height Provider Name an d Address Organization Details Last Updated DateTime 12/18/2024 185.42 cm DUSTIN Dow [facility], LClaudiaLClaudiaCClaudia 12/18/2024 12:59:04 Social History Question Answer Notes LastModified by Organizat ion Details LastModified Time Tobacco Smoking Status [facility] 09/11/2023 08:10:07 Are You Blind Or Do [...] Cancer N Blood Transfusion N Depression N COPD N Lung Disease N Hypothyroidism Y Developmental or Behavioral Disorders N Defects or Inherited Disease N Breast Problem N Difficulty Swallowing N Anesthesia Complications N Meniere's disease N Anxiety Disorder N Muscle, Joint, or Bone Problems N Vision or Eye Problems N Arthritis N Polyps N Infertility N Cancer N Varicosities N Stroke N Endometriosis N Bladder or Kidney Problems N High Cholesterol N Liver Disease N Headaches Y Fibromyalgia N Kidney Disease N Allergies/Hayfever N Heart Problems [...] Recorded Time HPV9 8 completed Not Available [facility] 10/14/2022 02:51:20 Tdap 9 completed Not Available [facility] 10/14/2022 02:51:20 Influenza, split virus, trivalent, preservative 8 completed Not Available [facility] 10/14/2022 02:51:20 Influenza, split virus, trivalent, preservative 9 completed Not Available [facility] 10/14/2022 02:51:20 Influenza, split virus, trivalent, preservative 7 completed Not Available [facility] 10/14/2022 02:51:20 Influenza, split virus, quadrivalent, preservative 5 completed [facility] 09/11/2023 08:07:08 MMR 6 completed [facility] 09/11/2023 08:07:08 Tdap 4 completed [facility] 09/11/2023 08:07:08 DTP 6 completed [facility] 09/11/2023 08:07:08 DTP 5 completed Xi Pliler null, [facility] 09/11/2023 08:07:08 DTP 5 completed Xi Pliler null, [facility] 09/11/2023 08:07:09 Hep B, unspecified formulation 6 completed Xi Pliler null, [facility] 09/11/2023 08:07:09 Hep B, unspecified formulation 5 completed Xi Pliler null, [facility] 09/11/2023 08:07:09 Hep B, unspecified formulation 5 completed Xi Pliler null, [facility] 09/11/2023 08:07:09 OPV, trivalent 6 completed Xi Pliler null, [facility] 09/11/2023 08:07:09 OPV, trivalent 5 completed Xi Pliler null, [facility] 09/11/2023 08:07:09 OPV, trivalent 7 completed Xi Pliler null, [facility] 09/11/2023 08:07:09 DTP-Hib 7 completed Xi Pliler null, [facility] 09/11/2023 08:07:09 Hib (PRP-T) 5 completed Xi Pliler null, [facility] 09/11/2023 08:07:09 Hib (PRP-T) 5 completed Xi Pliler null, [facility] 09/11/2023 08:07:09 Past Encounters Encounter ID Performer Location Encounter Start Date Encounter Closed Date Diagnosis/Indication Diagnosis SNOMED-CT Code Diagnosis ICD10 Code Diagnosis IMO Codes Diagnosis Note [id number] NATALIE ÁLVAREZ [facility] ([facility]) [address] [place] [phone] 11/28/2024 16:31:50 11/28/2024 18:20:20 Chronic constipation 349949093 K59.09 156906 Advised to take miralax daily as well as citrucel. Increase fiber and water intake. Patient will make a follow up with PCP to further evaluate. RTC with any new or worsening symptoms. [id number] Twan Wolfe MD [facility] ([facility]) [address] [place] [phone] 12/18/2024 12:33:31 12/18/2024 13:40:28 Normal 63771292 Z34.80 01143 Health Concerns Section Related Observation LastModified by Organization Detai ls LastModified Time None Recorded Concern Status LastModified by Organization Details LastModified Time None Recorded Payers Encounter Date Sequence Insurance Name Policy Number Policy Pride Covered Member ID Pride Member ID Guarantor Name 12/18/2024 1 ALLYN MICHELLE [employer] Allie Bolaños Anthony [id number] 1 Allie Cruz Notes Date Note Type Note Provider Name and Address Organization Details Recorded Time 12/18/2024 text/html jr ob routineRep orted by PatientHPIFor associated symptoms, patient reportscramping,const ipation, andheadachebut reportsno abdominal pain,no bleeding,no rom,no vaginal discharge,no vaginal/vulvar itching or irritation,no dysuria,no frequency,no urgency,no hematuria,no fever,no nausea,no emesis,no diarrhea/loose stool,no visual changes,no dizziness, andno breathlessness.Fatigu e,Pt denies any alcohol, tobacco or drug use.ROS as noted in the HPI Pt states her last LMP was at the end of October, Pt had a sister with trisomy 13 that at . 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 Status 12/19/19 25 1 A Positive Srikanth OPEN Fetus Data First Name Last Name Admitted to NICU Weight (g) Sex Living Outcome Pediatric Complications Fetus ID Race Codes Race Delivery Type [id number] Jm Calculation Initial Jm Date Initial Exam [...] Days Gestation 01/02/20 25 7 [email or web address] 01/01/2025 0603/2 026 1 Pre-sathish Flowsheet Flowsheet Date 12/18/2024 [...] Weight in lbs Pre/Post Dialysis Refused Weight 203.920782561964 BP Diastolic BP Location Tested BP Systolic [...] Weight in lbs Pre/Post Dialysis Refused Weight 205.605249683655 BP Diastolic BP Location Tested BP Systolic BP Type 80 140 sitting Fetus Heart Rate Present Fetus Movement Comments NOB, U/S of 01/01/25- EDC-08/19/25,EGA-7.4,FHT-141 N/V, LUQ pain Flowsheet Date 01/29/2025 Cerrato Score Blood Edema Fundus Height Fundus Units Glucose Ketones Leukocytes Nitrite Labor Signs Protein Cervic Dilation Cervic Effacement Cervic Station none none Negative neg Type Weight in lbs Pre/Post Dialysis Refused Weight 204.294537685519 BP Diastolic BP Location Tested BP Systolic [...] At Estimated Date of Delivery false Thalassemia (Zimbabwean, Ethiopian, Mediterranean, Or Background): MCV < 80 false Neural Tube Defect (Meningom yelocele, Spina Bifida, Or Anencephaly) false Congenital Heart Defect false Down Syndrome false Shan-Sachs (eg, Methodist, Cajun , Indian-[place]) false Saira Disease false Sickle Cell Disease Or Trait () false Hemophilia Or Other Blood Disorders false Muscular Dystrophy false Cystic Fibrosis false [place]'s Chorea false Intellectual Disability/Autism false If Yes, [...]
--- OUTSIDE RECORDS SUMMARY | 2025-02-08 09:23 | XMS_ITS | Data Portability ---
Author Organization BIRDIE Reji Mccullough [facility], [facility].CClaudia, [facility]ICKNEW [facility]EX[facility] Address [address] [address] Care Team Providers Care Psychology Tech Name Role Phone TWAN COLLAZO Primary Care Provider [phone] Assessment Encounter Date Assessment Date Assessment LastModified [...] US, obste tric, trans vagin al - [id number] 2024 025 tneuschwande r [facility], [address] [place], [address], 01/07/2025 12:38:01 US, obste tric, 1st trime ster [email or web address] [place] [address], [address] [place], [address], 12/22/2024 09:59:49 Medication Orders None recor ded. Patient TargetsNo targets recorded. Patient Instructions Encounter Date Encounter Id Patient Instructions Last Modified By Organization Details Last Modified Time 12/30/2024 [id number] We discussed eating more protein based on [...] nce of HIV infec tion. Not Available [facility] [address], [place], [address], 01/03/2025 23:56:29 01/02/2001/03/2025 HIV 1/2 ANTIG EN/AN TIBOD Y,FOU RTH GENER ATION W/RFL HIV Ag/Ab, screen NON-RE ACTIVE non-re active normal Not Available [address], [address], 01/03/2025 23:56:29 01/02/2001/03/2025 URINA LYSIS , COMPL ETE color YELLOW yellow normal Not Available [address], [address], 01/03/2025 23:56:29 01/02/2001/03/2025 URINA LYSIS , COMPL ETE appearance CLEAR clear normal Not Available [address], [address], 01/03/2025 23:56:29 01/02/2001/03/2025 URINA LYSIS , COMPL ETE specific gravity 1.024 1.001- 1.035 normal Not Available [address], [address], 01/03/2025 23:56:29 01/02/2001/03/2025 URINA LYSIS , COMPL ETE pH < OR = 5.0 5.0-8. 0 abnormal Not Available [address], [address], 01/03/2025 23:56:29 01/02/2001/03/2025 URINA LYSIS , COMPL ETE glucose NEGATI VE negati ve normal Not Available [address], [address], 01/03/2025 23:56:29 01/02/2001/03/2025 URINA LYSIS , COMPL ETE bilirubin NEGATI VE negati ve normal Not Available [address], [address], 01/03/2025 23:56:29 01/02/2001/03/2025 URINA LYSIS , COMPL ETE ketones NEGATI VE negati ve normal Not Available [address], [address], 01/03/2025 23:56:29 01/02/2001/03/2025 URINA LYSIS , COMPL ETE occult blood NEGATI VE negati ve normal Not Available [address], [address], 01/03/2025 23:56:29 01/02/2001/03/2025 URINA LYSIS , COMPL ETE protein NEGATI VE negati ve normal Not Available [address], [address], 01/03/2025 23:56:29 01/02/2001/03/2025 URINA LYSIS , COMPL ETE nitrite NEGATI VE negati ve normal Not Available [address], [address], 01/03/2025 23:56:29 01/02/2001/03/2025 URINA LYSIS , COMPL ETE leukocyte esterase NEGATI VE negati ve normal Not Available [address], [address], 01/03/2025 23:56:29 01/02/2001/03/2025 URINA LYSIS , COMPL ETE WBC NONE SEEN /hpf < or = 5 normal Not Available [address], [address], 01/03/2025 23:56:29 01/02/2001/03/2025 URINA LYSIS , COMPL ETE RBC NONE SEEN /hpf < or = 2 normal Not Available [address], [address], 01/03/2025 23:56:29 01/02/2001/03/2025 URINA LYSIS , COMPL ETE squamous epithelial cells 0-5 /hpf < or = 5 Not Available [address], [address], 01/03/2025 23:56:29 01/02/2001/03/2025 URINA LYSIS , COMPL ETE bacteria NONE SEEN /hpf none seen normal Not Available [address], [address], 01/03/2025 23:56:29 01/02/2001/03/2025 URINA LYSIS , COMPL ETE hyaline cast NONE SEEN /lpf none seen normal Not Available [address], [address], 01/03/2025 23:56:29 01/02/2001/03/2025 URINA LYSIS , COMPL ETE note This urine was dorothy zed for the prese nce of WBC, RBC, bacte roslyn, casts , and other forme d eleme nts. Only those eleme nts seen were repor amandeep. Not Available [address], [address], 01/03/2025 23:56:29 01/02/2001/03/2025 CBC (INCL UDES DIFF/ PLT) white blood cell count 9.6 thous and/u L 3.8-10 .8 normal Not Available [address], [address], 01/03/2025 23:56:30 01/02/2001/03/2025 CBC (INCL UDES DIFF/ PLT) red blood cell count 4.45 mariely on/uL 3.80-5 .10 normal Not Available [address], [address], 01/03/2025 23:56:30 01/02/20 25 01/03/2025 CBC (INCL UDES DIFF/ PLT) hemoglobin 9.8 g/dL 11.7-1 5.5 low Not Available [address], [address], 01/03/2025 23:56:30 01/02/20 25 01/03/2025 CBC (INCL UDES DIFF/ PLT) hematocrit 34.4 % 35.0-4 5.0 low Not Available [facility] [address], [address], 01/03/2025 23:56:30 01/02/20 25 01/03/2025 CBC (INCL UDES DIFF/ PLT) MCV 77.3 fL 80.0-1 00.0 low Not Available [facility] [address], [address], 01/03/2025 23:56:30 01/02/20 25 01/03/2025 CBC (INCL UDES DIFF/ PLT) MCH 22.0 pg 27.0-3 3.0 low Not Available [address], [address], 01/03/2025 23:56:30 01/02/2001/03/2025 CBC (INCL UDES DIFF/ PLT) MCHC 28.5 g/dL 32.0-3 6.0 low For adult s, a sligh t decre ase in the calcu lated MCHC value (in the range of 30 to 32 g/dL) is most likel y not clini denisha signi mel t; abdirahman er, it shoul d be inter prete d with cauti on in corre latio n with other red cell oksana eters and the patie nt's clini la condi tion. Not Available [address], [address], 01/03/2025 23:56:30 01/02/20 25 01/03/2025 CBC (INCL UDES DIFF/ PLT) RDW 14.8 % 11.0-1 5.0 normal Not Available [address] [place], [address], 01/03/2025 23:56:30 01/02/2001/03/2025 CBC (INCL UDES DIFF/ PLT) platelet count 465 thous and/u L 140-40 0 high Not Available [address], [address], 01/03/2025 23:56:30 01/02/2001/03/2025 CBC (INCL UDES DIFF/ PLT) MPV 9.5 fL 7.5-12 .5 normal Not Available [facility] [address], [address], 01/03/2025 23:56:30 01/02/2001/03/2025 CBC (INCL UDES DIFF/ PLT) absolute neutrophils 6845 cells /uL 1500-7 800 normal Not Available [address], [address], 01/03/2025 23:56:30 01/02/2001/03/2025 CBC (INCL UDES DIFF/ PLT) absolute lymphocytes 1901 cells /uL 850-39 00 normal Not Available [address], [address], 01/03/2025 23:56:30 01/02/2001/03/2025 CBC (INCL UDES DIFF/ PLT) absolute monocytes 787 cells /uL 200-95 0 normal Not Available [address], [address], 01/03/2025 23:56:30 01/02/2001/03/2025 CBC (INCL UDES DIFF/ PLT) absolute eosinophils 19 cells /uL 15-500 normal Not Available [address], [address], 01/03/2025 23:56:30 01/02/2001/03/2025 CBC (INCL UDES DIFF/ PLT) absolute basophils 48 cells /uL 0-200 normal Not Available [address], [address], 01/03/2025 23:56:30 01/02/2001/03/2025 CBC (INCL UDES DIFF/ PLT) neutrophils 71.3 % normal Not Available [address], [address], 01/03/2025 23:56:30 01/02/2001/03/2025 CBC (INCL UDES DIFF/ PLT) lymphocytes 19.8 % normal Not Available [address], [address], 01/03/2025 23:56:30 01/02/2001/03/2025 CBC (INCL UDES DIFF/ PLT) monocytes 8.2 % normal Not Available [address], [address], 01/03/2025 23:56:30 01/02/20 25 01/03/2025 CBC (INCL UDES DIFF/ PLT) eosinophils 0.2 % normal Not Available [address], [address], 01/03/2025 23:56:30 01/02/2001/03/2025 CBC (INCL UDES DIFF/ PLT) basophils 0.5 % normal Not Available [address], [address], 01/03/2025 23:56:30 01/02/2001/03/2025 HEPAT ITIS B SURFA CE ANTIG EN W/REF L CONFI RM hepatitis B surface antigen NON-RE ACTIVE non-re active normal For addit ional infor brooke laughlin e refer to http: //[facility] [place].que stdia gnost ics.c om/fa q/FAQ (This link is being provi ded for infor matio nal/ educa latha l purpo ses only. ) Not Available [facility] [address], [address], 01/03/2025 23:56:30 01/02/2001/03/2025 HEPAT ITIS C AB [...] a test for HCV RNA (test code 34505 ) is sugge sted. For addit ional infor cecilia cox e refer to http: //[facility] [place] leonard stdia gnost ics.c om/fa q/FAQ 22v1 (This link is being provi ded for infor cecilia isbell/ stephaniea latha l purpo ses only. ) Not Available [facility] [address], [address], 01/03/2025 23:56:31 01/02/2001/03/2025 RUBEL LA AB (IGG) [...] with rubel la virus . Not Available [facility] [address], [address], 01/03/2025 23:56:31 01/02/20 25 01/03/2025 RPR (DX) W/REF L TITER AND T. PALLI DUM AB, IA RPR (DX) w/refl titer and confirmatory testing NON-RE ACTIVE non-re active normal No labor atory evide nce of syphi lis. If recen t expos ure is suspe cted, submi t a new sampl e in 2-4 weeks . Not Available [address], [address], 01/03/2025 23:56:31 01/02/2001/03/2025 ANTIB ARTEMIO SCREE N, [...] alloi mmuni zed pregn jaye. Not Available [address], [address], 01/03/2025 23:56:32 01/02/2001/03/2025 ABO GROUP AND RH TYPE ABO group A Not Available [address], [address], 01/03/2025 23:56:32 01/02/2001/03/2025 ABO GROUP AND RH TYPE Rh type RH(D) POSITI VE For addit ional infor brooke laughlin e refer to http: //[facility] [place].Que stDia gnost ics.c om/fa q/FAQ 111 (This link is being provi ded for infor cecilia isbell/ educlou azul l purpo ses only. ) Not Available [address], [address], 01/03/2025 23:56:32 01/02/2001/03/2025 DRUG MONIT OR, PANEL 1, SCREE N, URINE amphetamines NEGATI VE NG/mL <500 See Note A See Note A Not Available [address] [place], [address], 01/03/2025 23:56:33 01/02/2001/03/2025 DRUG MONIT OR, PANEL 1, SCREE N, URINE barbiturates NEGATI VE NG/mL <300 See Note A See Note A Not Available [facility] [address], [place], [address], 01/03/2025 23:56:33 01/02/2001/03/2025 DRUG MONIT OR, PANEL 1, SCREE N, URINE benzodiazepi kristen NEGATI VE NG/mL <100 See Note A See Note A Not Available [facility] [address], [place], [address], 01/03/2025 23:56:33 01/02/2001/03/2025 DRUG MONIT OR, PANEL 1, SCREE N, URINE cocaine metabolite NEGATI VE NG/mL <150 See Note A See Note A Not Available [facility] [address], [place], [address], 01/03/2025 23:56:33 01/02/2001/03/2025 DRUG MONIT OR, PANEL 1, SCREE N, URINE marijuana metabolite NEGATI VE NG/mL <20 See Note A See Note A Not Available [facility] [address], [place], [address], 01/03/2025 23:56:33 01/02/2001/03/2025 DRUG MONIT OR, PANEL 1, SCREE N, URINE methadone metabolite NEGATI VE NG/mL <100 See Note A See Note A Not Available [facility] [address], [place], [address], 01/03/2025 23:56:33 01/02/2001/03/2025 DRUG MONIT OR, PANEL 1, SCREE N, URINE opiates NEGATI VE NG/mL <100 See Note A See Note A Not Available [facility] [address], [place], [address], 01/03/2025 23:56:33 01/02/2001/03/2025 DRUG MONIT OR, PANEL 1, SCREE N, URINE oxycodone NEGATI VE NG/mL <100 See Note A See Note A Not Available [address] [address] [address] , [place], [address], 01/03/2025 23:56:33 01/02/2001/03/2025 DRUG MONIT OR, PANEL 1, SCREE N, URINE phencyclidin e NEGATI VE NG/mL <25 See Note A See Note A Not Available [address] , [place], [address], 01/03/2025 23:56:33 01/02/2001/03/2025 DRUG MONIT OR, PANEL 1, SCREE N, URINE creatinine 112.7 mg/dL > or = 20.0 Not Available [address] , [place], [address], 01/03/2025 23:56:33 01/02/2001/03/2025 DRUG MONIT OR, PANEL 1, SCREE N, URINE pH 4.9 4.5-9. 0 Not Available [address] , [place], [address], 01/03/2025 23:56:33 01/02/2001/03/2025 DRUG MONIT OR, PANEL 1, SCREE N, URINE oxidant NEGATI VE mcg/m L <200 Not Available [address] , [place], [address], 01/03/2025 23:56:33 01/02/2001/03/2025 DRUG MONIT ORING TEMPL [...] are presu mptiv e; based only on scree zulma raleigho ds, and they have not been confi rmed by a eugenia Morant [facility] Provi ders needi ng Inter preta tion isatu tance , pleas e conta ct us at 1.877 .40.R XTOX (1.87 7.407 .9869 ) M-F, 8am to 10pm EST Not Available [facility] [address] [address] [place], [address], 01/03/2025 23:56:33 01/02/2001/03/2025 CULTU RE, URINE , ROUTI NE culture, urine, routine SEE NOTE CULTU RE, URINE , ROUTI NE Micro Numbe r: [id number] Test Statu s: Final Speci men Sourc e: Urine , clean catch Speci men Quali ty: Adequ ate Resul t: No Growt h Not Available [facility] [address] [address] [place], [address], 01/03/2025 23:56:33 01/03/2001/06/2025 AUTOM ATED PAP W/AGE BASED SCREE ZULMA, CT/NG ,TRIC H comment This order for age-b ased cervi la cance r and STI scree zulma follo ws ACOG guide lines (PB 168, 140, FAQ07 1). See indiv idual assay s for perfo rming site locat ion. Not Available [facility] [address] [place], [address], 01/06/2025 12:50:48 01/03/2001/06/2025 AUTOM ATED PAP W/AGE BASED SCREE ZULMA, CT/NG ,TRIC H clinical information: normal Pregn ant Not Available [facility] [address] [place], [address], 01/06/2025 12:50:48 01/03/2001/06/2025 AUTOM ATED PAP W/AGE BASED SCREE ZULMA, CT/NG ,TRIC H LMP: normal FT APPG Not Available [address], [address], 01/06/2025 12:50:48 01/03/20 25 01/06/2025 AUTOM ATED PAP W/AGE BASED SCREE ZULMA, CT/NG ,TRIC H prev. Pap: normal NONE GIVEN Not Available [address], [address], 01/06/2025 12:50:48 01/03/2001/06/2025 AUTOM ATED PAP W/AGE BASED SCREE ZULMA, CT/NG ,TRIC H prev. BX: normal NONE GIVEN Not Available [address], [address], 01/06/2025 12:50:48 01/03/2001/06/2025 AUTOM ATED PAP W/AGE BASED SCREE ZULMA, CT/NG ,TRIC H source: normal Cervi x, Endoc ervix Not Available [address], [address], 01/06/2025 12:50:48 01/03/2001/06/2025 AUTOM ATED PAP W/AGE BASED SCREE ZULMA, CT/NG ,TRIC H statement of adequacy: normal Satis facto ry for evalu ation . Endoc ervic al/tr ansfo rmati on zone compo nent prese nt. Not Available [address], [address], 01/06/2025 12:50:48 01/03/2001/06/2025 AUTOM ATED PAP W/AGE BASED SCREE ZULMA, CT/NG ,TRIC H interpretati on/result: normal Cytol ogy Resul ts: Negat william for intra epith elial lesio n or malig rocío . Not Available [address] [place], [address], 01/06/2025 12:50:48 01/03/2001/06/2025 AUTOM ATED PAP W/AGE BASED SCREE ZULMA, CT/NG ,TRIC H comment: normal This Pap test has been evalu ated with the ThinP rep(R ) Imagi ng Syste m. Not Available [facility] [address] [place], [address], 01/06/2025 12:50:48 01/03/20 25 01/06/2025 AUTOM ATED PAP W/AGE BASED SCREE ZULMA, CT/NG ,TRIC H cytotechnolo gist: normal EMILY, CT( CP) CT Scree zulma Locat ion: [facility] , [address] [place] [address] CLIA: [id number] Slide prepa ratio n perfo rmed at: [facility], [address] [place], [address] CLIA: [id number] Not Available [facility] [address] [address], [place], [address], 01/06/2025 12:50:48 01/03/2001/06/2025 AUTOM ATED PAP W/AGE BASED SCREE ZULMA, CT/NG ,TRIC H comment EXPLA NATOR Y NOTE: The Pap is a scree zulma test for cervi la cance r. It is not a diagn ostic test and is subje ct to false negat william and false posit william resul ts. It is most relia ble when a satis facto ry sampl e, regul shantanu obtai calvin, is submi tted with relev ant clini la findi ngs and histo ry, and when the Pap resul t is evalu ated along with histo virgilio and curre nt clini la infor matio n. Not Available [facility] [address] [place], [address], 01/06/2025 12:50:48 01/03/2001/06/2025 AUTOM ATED PAP W/AGE BASED SCREE ZULMA, CT/NG ,TRIC H HPV MRNA E6/E7 NOT DETECT ED not detect ed normal Metho dolog y: Trans cript ion-M ediat ed Ampli ficat ion This assay detec ts E6/E7 viral messe nger RNA (mRNA ) from 14 high- risk HPV types (16,1 8,31, 33,35 ,39,4 5,51, 52,56 ,58,5 9,66, 68). Cervi la sourc es are requi red for HPV testi ng. If a vagin al sourc e from a patie nt who has had a total hyste recto my with remov al of cervi x was submi tted, pleas e conta ct the testi ng labor atory for alter nativ e testi ng optio ns. For addit ional infor brooke laughlin e refer to http: //[facility].que stdia gnost ics.c om/fa q/FAQ 129v1 (This link if provi ded for infor cecilia rivera/ educa latha l purpo ses only. ) Not Available [facility] [address] [address] [place], [address], 01/06/2025 12:50:48 01/03/2001/06/2025 AUTOM ATED PAP W/AGE BASED SCREE ZULMA, CT/NG ,TRIC H chlamydia trachomatis RNA, tma, urogenital NOT DETECT ED not detect ed normal Not Available [facility] [address] [place], [address], 01/06/2025 12:50:48 01/03/20 25 01/06/2025 AUTOM ATED PAP W/AGE BASED SCREE ZULMA, CT/NG ,TRIC H neisseria gonorrhoeae RNA, tma, urogenital NOT DETECT ED not detect ed normal Not Available [facility] [address] [address] [place], [address], 01/06/2025 12:50:48 01/03/20 25 01/06/2025 AUTOM ATED PAP W/AGE BASED SCREE ZULMA, CT/NG ,TRIC H comment The dorothy tical perfo rmanc e drea cteri stics of this assay , when used to test SureP ath(T M) speci mens have been deter mined by [facility]. The modif icati ons have not been clear ed or appro loy by the FDA. This assay has been valid ated pursu ant to the CLIA regul ation s and is used for clini la purpo ses. For addit ional infor brooke laughlin e refer to https ://ed ucati on.qu estKing.com. IceRocket/f aq/FA Q154 (This link is being provi ded for infor cecilia n/ educa latha l purpo ses only. ) Not Available [facility] [address] [place], [address], 01/06/2025 12:50:48 01/03/20 25 01/06/2025 AUTOM ATED PAP W/AGE BASED SCREE ZULMA, CT/NG ,TRIC H trichomonas vaginalis, ql tma, Pap vial NOT DETECT ED not detect ed normal The dorothy tical perfo rmanc e drea cteri stics of this assay have been deter mined by [facility]. The modif icati ons have not been clear ed or appro loy by the FDA. This assay has been valid ated pursu ant to the CLIA regul ation s and is used for clini la purpo ses. For addit ional infor brooke laughlin e refer to http: //[facility] [place] steveia gnost ics.c om/ faq/T saumya flores tma (This link is being provi ded for infor cecilia n/ educa latha l purpo ses only. ) Not Available [facility] [address] [place], [address], 01/06/2025 12:50:48 01/03/20 25 01/01/2025 US, obste tric, 2nd trime ster No observ ation record ed. [email or web address] [facility] [address] [place], [address], 01/02/2025 16:12:22 Result Notes None recorded. Problems Name Problem SNOMED Code Status Onset Date Resolution Date Notes Provider Name and Address Organization Details Recorded Time Hypothyroid ism 72014151 Active 2021 Xi Lynn [facility] 4 15:39:59 Migraine 78852680 Active 2021 Migraine Headache Xitha Lynn [facility].CClaudia 4 15:40:07 Anemia 823318659 Active 2023 CHERELLE ESTES [facility], LClaudiaL.CClaudia 4 17:20:47 Diarrhea 68201471 Active [address], [address], [facility], L.L.CClaudai 5 09:29:04 53132961 Active 2024 DUSTIN EID [facility] 5 12:56:44 Problem Notes None recorded. Procedures Surgical History Date Name Laterality Status Provider Name and Address Organization Details Recorded Time 01/02/20 25 Date of Last Pap Smear completed CHERELLE MEERA [facility] L.L.CClaudia 01/01/2025 15:21:03 Gastric Bypass completed Xi [facility] 09/11/2023 08:10:21 abdominoplasty completed [facility] L.L.CClaudia 09/11/2023 08:10:32 Imaging Results None recorded. Procedure Notes None recorded. Medical Equipment None Reported. Allergies No known drug allergies Medications Name Sig Start Date Stop Date Status Note LastModified by Organization Details LastModified Time Vitamin C 500 mg tablet Take 1 tablet every day by oral route before meal(s), for anemia, take with Iron. 06/235 completed Not Available Not Available Not Available [...] Details Last Updated DateTime 12/18/2024 185.42 cm [facility], LClaudiaLClaudiaCClaudia 12/18/2024 12:59:04 Date Recorded Body height Body mass index (BMI) Body weight Oxygen saturation Heart rate Body temperature Systolic And Diastolic Provider Name and Address Organization Details Last Updated DateTime 185.42 cm 26.8 kg/m2 69214.6 5 g 99 % 88 /min 98.7 [degF] 120/64 mm[Hg] Angelia Ha [facility], LClaudiaLPedro 10:25:42 Date Recorded Body height Body mass index (BMI) Body weight Oxygen saturation Heart rate Respiratory rate Body temperature Systolic And Diastolic Provider Name and Address Organization Details Last Updated DateTime 185.42 cm 27 kg/m2 50876.4 4 g 96 % 74 /min 18 /min 98.5 [degF] 140/80 mm[Hg] [facility], LClaudiaLClaudiaCClaudia 16:07:27 Date Recorded Body height Body mass index (BMI) Body weight Oxygen saturation Heart rate Respiratory rate Body temperature Systolic And Diastolic Provider Name and Address Organization Details Last Updated DateTime 185.42 cm 26.9 kg/m2 25143.5 4 g 96 % 110 /min 18 /min 98.2 [degF] 140/74 mm[Hg] [facility], LClaudiaLClaudiaCClaudia 16:21:47 Social History Question Answer Notes LastModified by Organizat ion Details LastModified Time Tobacco Smoking Status Never Smoker Xi hills [facility], LClaudiaL.C. 09/11/2023 08:10:07 Are You Blind Or Do [...] N Breast Cancer N Blood Transfusion N COPD N Depression N Lung Disease [...] Recorded Time HPV9 8 completed Not Available [facility] 10/14/2022 02:51:20 Tdap 9 completed Not Available [facility] 10/14/2022 02:51:20 Influenza, split virus, trivalent, preservative 8 completed Not Available [facility] 10/14/2022 02:51:20 Influenza, split virus, trivalent, preservative 9 completed Not Available [facility] 10/14/2022 02:51:20 Influenza, split virus, trivalent, preservative 7 completed Not Available [facility] 10/14/2022 02:51:20 Influenza, split virus, quadrivalent, preservative 5 completed Xi [place] [facility], LClaudiaLPedro 09/11/2023 08:07:08 MMR 6 completed [place] [facility] ServicesYasminLP[facility] 09/11/2023 08:07:08 Tdap 4 completed Xi Pliler null, [facility] 09/11/2023 08:07:08 DTP 6 completed Xi Pliler null, [facility] 09/11/2023 08:07:08 DTP 5 completed Xi Pliler null, [facility] 09/11/2023 08:07:08 DTP 5 completed Xi Pliler null, [facility] 09/11/2023 08:07:09 Hep B, unspecified formulation 6 completed Xi Pliler null, [facility] 09/11/2023 08:07:09 Hep B, unspecified formulation 5 completed [facility] 09/11/2023 08:07:09 Hep B, unspecified formulation 5 completed Xi Pliler null, [facility] 09/11/2023 08:07:09 OPV, trivalent 6 completed Xi [facility] 09/11/2023 08:07:09 OPV, trivalent 5 completed Xi Pliler null, [facility] 09/11/2023 08:07:09 OPV, trivalent 7 completed Xi Pliler null, [facility] 09/11/2023 08:07:09 DTP-Hib 7 completed Xi Pliler null, [facility] 09/11/2023 08:07:09 Hib (PRP-T) 5 completed Xi Pliler null, [facility] 09/11/2023 08:07:09 Hib (PRP-T) 5 completed Xi hills [facility], Felecia 09/11/2023 08:07:09 Past Encounters Encounter ID Performer Location Encounter Start Date Encounter Closed Date Diagnosis/Indication Diagnosis SNOMED-CT Code Diagnosis ICD10 Code Diagnosis IMO Codes Diagnosis Note [id number] Eldon Block DO [facility] ([facility]) [address] [place] [address] [id number] 5 09/11/2023 08:04:14 09/11/2023 09:00:27 Pain in throat [id number] R07.0 I counseled on symptoms, likely viral illness. home today. rest, fluids, motrin, vitamins. Will give wait and see antibiotic . If symptoms are worse over the next 1-2 days, or getting worse then start antibiotic s. If still getting worse after antibiotic s or if severe symptoms, return to clinic or go to ER. Acute pharyngitis [id number] 003 J02.9 [id number] Twan Collazo MD [facility] ([facility]) [address] [place] [address] [phone] 5 12/05/2023 10:41:47 12/05/2023 11:41:03 History and physical examination, [facility] [id number] Z02.0 [id number] KWADWO SIFUENTES APRN [facility] ([facility]) [address] [place] [address] [phone] 12/08/2023 09:46:59 12/08/2023 10:13:22 [id number] Eldon Block DO [facility] ([facility]) [address] [place] [address] [phone] 5 06/23/2024 08:49:13 06/23/2024 10:06:03 Diarrhea [id number] R19.7 acute, appears viral. rest. fluids, lomotil prn, bland diet. if not improved in 2 days, come in for stool studies. Return to office with no improvemen t or any problems. Go to ER with severe worsening or severe problems. [id number] NATALIE BLOUNT [facility] ([facility]) [address] [place] [address] [phone] 5 09/08/2024 17:15:34 09/12/2024 11:22:04 Acute vaginitis [id number] N76.0 11334 Self vaginal swab collected today for vaginitis testing. will call with results. Candidiasis of vagina 72 [id number] B37.31 [id number] NATALIE ÁLVAREZ [facility] ([facility]) [address] [place] [address] [phone] 5 11/28/2024 16:31:50 11/28/2024 18:20:20 Chronic constipation [id number] K59.09 [id number] Advised to take miralax daily as well as citrucel. Increase fiber and water intake. Patient will make a follow up with PCP to further evaluate. RTC with any new or worsening symptoms. [id number] Twan Collazo MD [facility] ([facility]) [address] [place] [address] [phone] 5 12/18/2024 12:33:31 12/18/2024 13:40:28 Normal [id number] Z34.80 [id number] KWADWO SIFUENTES APRN [facility] ([facility]) [address] [place] [address] [phone] 5 12/30/2024 10:15:48 12/30/2024 11:21:42 [id number] Twan Collazo MD [facility] ([facility]) [address] [place] [address] [phone] 5 01/01/2025 09:29:23 01/01/2025 15:12:26 Normal [id number] Z34.80 [id number] Twan Collazo MD [facility] ([facility]) [address] [place] [address] [id number] 5 01/01/2025 14:44:10 02/04/2025 12:10:10 Normal in multigravida [id number] Z34.80 [id number] Health Concerns Section Related Observation LastModified by Organization Detai ls LastModified Time None Recorded Concern Status LastModified by Organization Details LastModified Time None Recorded Advance Directives Directive None Recorded Payers Insurance Date Sequence Insurance Name Policy Number Policy Pride Covered Member ID Pride Member ID Guarantor Name 11/28/2024 1 [facility] [id number] Allie Cruz [id number] Allie Cruz 11/28/2024 2 [employer] (MEDICAID REPLACEMENT - HMO) [id number] Allie Cruz [id number] Allie Cruz 11/28/2024 1 [employer] [facility] (PPO) Allie Cruz [id number] Allie Cruz 01/26/2025 1 [facility] (EPO) Allie Cruz [id number] Allie Cruz Notes Date Note Type Note Provider Name and Address Organization Details Recorded Time 5 text/html jr ob routineReported by PatientHPIFor associated symptoms, patient reportscramping,constipat ion, andheadachebut reportsno abdominal pain,no bleeding,no rom,no vaginal discharge,no vaginal/vulvar itching or irritation,no dysuria,no frequency,no urgency,no hematuria,no fever,no nausea,no emesis,no diarrhea/loose stool,no visual changes,no dizziness, andno breathlessness.Fatigue,Pt denies any alcohol, tobacco or drug use.ROS as noted in the HPI Pt states her last LMP was at the end of October, Pt had a sister with trisomy 13 that at . Twan Collazo MD [address] [place] [address], [phone], [facility] 12/18/2024 13:30:17 5 text/html walk in30 minutes ago, got cold sweats, dizzy, arms tingle/pain shoulders down- all resolved nowPt asked to check BS, 80- breakfast 0630 KWADWO SIFUENTES APRN [address] [place] [address], [phone], [facility] 12/30/2024 11:20:57 5 text/html jr ob routineReported by PatientHPIFor associated symptoms, patient reportscramping (luq),nausea, andemesisbut reportsno abdominal pain,no bleeding,no vaginal discharge,no vaginal/vulvar itching or irritation,no dysuria,no frequency,no urgency,no hematuria,no fever,no constipation,no diarrhea/loose stool,no edema,no visual changes,no headache,no dizziness,no breathlessness, andno hyperreflexia.Pt denies any alcohol, tobacco or drug use. Not Available Not Available Not Available 5 text/html jr ob routineReported by PatientHPIFor associated symptoms, patient reportscramping,nausea,em esis,headache, andbreathlessnessbut reportsno abdominal pain,no bleeding,no vaginal discharge,no vaginal/vulvar itching or irritation,no dysuria,no frequency,no urgency,no hematuria,no fever,no constipation,no diarrhea/loose stool,no edema,no visual changes,no dizziness, andno hyperreflexia.Pt denies any alcohol, tobacco or drug use.ROS as noted in the HPI Not Available Not Available Not Available OBGyn Episode Ob Episode Information Episode Created Date Number of Fetuses Patient Bloodtype Patient rh Status Prepregnancy Weight lbs Domestic Partner Domestic Partner Phone Father Name Supply Chain Manager Status 12/19/19 25 1 A Positive Srikanth OPEN Fetus Data First Name Last Name Admitted to NICU Weight (g) Sex Living Outcome Pediatric Complications Fetus ID Race Codes Race Delivery Type [id number] Jm Calculation Initial Jm Date Initial Exam [...] Weight in lbs Pre/Post Dialysis Refused Weight 203.853035288501 BP Diastolic BP Location Tested BP Systolic [...] Weight in lbs Pre/Post Dialysis Refused Weight 205.798992900362 BP Diastolic BP Location Tested BP Systolic BP Type 80 140 sitting Fetus Heart Rate Present Fetus Movement Comments NOB, U/S of 01/01/25- EDC-08/19/25,EGA-7.4,FHT-141 N/V, LUQ pain Flowsheet Date 01/29/2025 Cerrato Score Blood Edema Fundus Height Fundus Units Glucose Ketones Leukocytes Nitrite Labor Signs Protein Cervic Dilation Cervic Effacement Cervic Station none none Negative neg Type Weight in lbs Pre/Post Dialysis Refused Weight 204.443574620138 BP Diastolic BP Location Tested BP Systolic [...] At Estimated Date of Delivery false Thalassemia (East Timorese, Sao Tomean, Mediterranean, Or Background): MCV < 80 false Neural Tube Defect (Meningom yelocele, Spina Bifida, Or Anencephaly) false Congenital Heart Defect false Down Syndrome false Shan-Sachs (eg, Adventist, Cajun , German-[place]ass[place]) false Saira Disease false Sickle Cell Disease Or Trait () false Hemophilia Or Other Blood Disorders false Muscular Dystrophy false Cystic Fibrosis false Tate's Chorea false Intellectual Disability/Autism false If Yes, [...] Method Maternal HG B and HCT Levels Ob Episode Information Episode Created Date Number of Fetuses Patient Bloodtype Patient rh Status Prepregnancy Weight lbs Domestic Partner Domestic Partner Phone Father Name Supply Chain Manager Status 12/19/19 25 1 CLOSED Fetus Data First Name Last Name Admitted to NICU Weight (g) Sex Living Outcome Pediatric Complications Fetus ID Race Codes Race Delivery Type 3401.94 M Full Term [id number] VAGINAL Jm Calculation Initial Jm Date Initial Exam Date Initial Exam Provider Initial Ultrasound Date Last Menstrual Period Date Ultra Sound Weeks Gestation 0 Eighteen To Twenty Week Jm Update Ultra Sound Date Fundal Height At Umbil Quickening Date Ultra Sound Latest Weeks Gestation Final Jm Confirmed By Final Jm Confirmed Date Final Jm Date Ultra Sound Latest Days Gestation 0 0 Menstrual History Last Menstrual Date Menses Monthly On Bcp Conception Prior Menses Frequency Hcg Plus Date Menarche Onset Age Delivery Information Delivery Date Delivery Type Labor Anesthesia Weeks Gestation Incision Type Labor Labor Length Hrs Delivered By Post Complications Tubal Sterilization Discharge Date Comments 9 38 No Complicat ions- [place] Discharge Information Feeding Method Contraceptive Method Maternal HG B and HCT Levels
--- NOTE | 2025-02-08 09:28 | ED_ITS ---
HPI - 2 General: Chief complaint: Vaginal Bleeding Stated complaint: 12 weeks preg, vaginal bleeding, cramping Time Seen by Provider: 02/08/25 09:19 Source: patient Mode of arrival: ambulatory Limitations: no limitations History of Present Illness: Patient is a 30-year-old female, G2, P1, currently 12 weeks who presents with small amount of vaginal bleeding that began this morning. Patient states she was in the shower had a sudden feeling that she was urinating on herself and looked down and noticed that there was a small amount of blood. Notes that there was no passage of clots and that it has since resolved, but she is very anxious as she has never had this before and her prior was without complication. She has no personal past medical history, no history of ectopic or tubo-ovarian abscess, she is only reporting mild cramping but states this has been present throughout the . At this time essentially is symptom-free other than feeling anxious, her vitals are stable. She does not feel that she is going to pass out when she ambulates, no dizziness or lightheadedness. MD Complaint: vaginal bleeding Onset (ago): hour(s) Pain Consistency: now resolved Associated symptoms: Deny abdominal pain, dysuria, headache(s), nausea or vomiting Related Data Previous Rx's ?Medication ?Instructions ?Recorded cyclobenzaprine 10 mg tablet 10 mg PO TID #14 tabs 12/07 Allergies Allergy/AdvReac Type Severity Reaction Status Date / Time No Known Allergies Allergy Verified 02/08/25 09:22 Review of Systems 2 General: Reports: 10 or more systems reviewed and unremarkable except in HPI and below Const: Reports: other (); Denies: fever(s), chills, change in appetite, change in weight or diaphoresis ENMT: Denies: throat pain or hoarseness Card: Denies: chest pain, palpitations or lightheadedness Resp: Denies: dyspnea, productive cough or wheezing GI: Reports: GI cramping; Denies: abdominal pain, nausea, vomiting, diarrhea, constipation, bloating, change in stool character or hematochezia : Reports: vaginal bleeding; Denies: flank pain, difficulty voiding, dysuria, urinary frequency or urinary urgency Musc: Denies: neck pain or back pain Skin/Breast: Denies: rash or new lesions Neuro: Denies: headache(s) or dizziness Physical Exam 2 Const: COMMON NORMALS: patient oriented x3 and no limitations GENERAL APPEARANCE: cooperative, well developed and anxious O RIENTATION/CONSCIOUSNESS: Yes awake, Yes oriented to person, Yes oriented to place and Yes oriented to time HENMT: COMMON NORMALS: normocephalic, atraumatic and hearing grossly normal bilaterally HEAD & SCALP: normocephalic and atraumatic Eye: COMMON NORMALS: Equal, round and reactive pupils present, EOMs intact bilaterally and conjunctivae normal CONJUNCTIVA: Yes conjunctivae normal P UPIL: Yes Equal, round and reactive pupils present Neck/C-Spine: COMMON NORMALS: full ROM, supple and no JVD Resp: COMMON NORMALS: normal respiratory effort, No retractions, No use of accessory muscles and clear to auscultation bilaterally AUSCULTATION: clear to auscultation bilaterally Cardio: COMMON NORMALS: no JVD, regular rate, regular rhythm, No clicks present (Cardio), No murmurs present (Cardio) and No rub (Cardio) RATE: r egular rate RHYTHM: regular rhythm GI: COMMON NORMALS: Normal to inspection, nondistended, normoactive bowel sounds present, Soft to palpation and non-tender AUSCULTATION: Yes normoactive bowel sounds PALPATION: Yes Soft to palpation RECTAL EXAM: d eferred : COMMON NORMALS: Yes no CVA tenderness BLADDER/KIDNEY EXAM: Yes no CVA tenderness Back/Pelvis: COMMON NORMALS: no CVA tenderness Extremity: COMMON NORMALS: normal to inspection, full ROM and capillary refill normal Neuro: COMMON NORMALS: patient oriented x3, moves all extremities, no focal motor deficits and no sensory deficits noted SENSORIUM/ORIENTATION: Yes oriented to person, Yes oriented to place and Yes oriented to time Skin: COMMON NORMALS: no rashes or lesions noted GENERAL SKIN EXAM: no rashes or lesions noted Course 2 Vital Signs: Vital signs: Vital Signs Temperature 98.3 F 02/08/25 09:19 Pulse Rate 105 H 02/08/25 09:19 Respiratory Rate 14 02/08/25 09:19 Blood Pressure 137/80 02/08/25 09:19 Pulse Oximetry 98 02/08/25 09:19 Oxygen Delivery Me thod Room Air 02/08/25 09:19 MDM - OB/Uterine Contractions Medical Decision Making This patient presented with light vaginal bleeding during , 12 weeks gestation. On exam was anxious but no concerning findings. Bleeding had resolved prior to being seen. She is hemodynamically stable with her vitals. She had no pertinent past medical history and up-to-date the had been without complication. Blood work is reassuring, she does have anemia this is not to be unexpected with her status. Her ultrasound is reassuring showing a single live intrauterine with no abnormalities there, there is a small subchorionic hemorrhage likely to explain the small amount of bleeding she is having. This is common in and I do not expect this to cause a problem going forward with her , though she is encouraged to follow-up with her OB for reevaluation and further monitoring. In the meantime is informed to come back if the bleeding gets heavier, if she has severe pain, dizziness/fainting, or fevers or chills. Patient endorses relief, agrees with return precautions and stable for discharge at this time. Lab Data 02/08/25 09:32 02/08/25 09:32 Radiology Impressions Ultrasound 02/08/25 09:18 IMPRESSION: 1. Single living intrauterine measuring 12 weeks 5 days by ultrasound. 2. Suggested small subchorionic hemorrhage. Recommend continued attention on follow-up imaging. Laboratory Results WBC 9.62 10^3/uL (3.29-11.43) 02/08/25 09:32 RBC 4.26 10^6/uL (3.85-5.65) 02/08/25 09:32 Hgb 9.60 g/dL (11.27-16.99) L 02/08/25 09:32 Hct 32.1 % (36-47) L 02/08/25 09:32 MCV 75.4 fl (85-98) L 02/08/25 09:32 MCH 22.5 pg (27-33) L 02/08/25 09:32 MCHC 29.9 g/dL (30-55) L 02/08/25 09:32 RDW 17.7 % (12.1-15.1) H 02/08/25 09:32 Plt Count 474 10^3/cmm (157-399) H 02/08/25 09:32 MPV 8.7 fL (7.4-10.4) 02/08/25 09:32 Neut % (Auto) 72.4 % 02/08/25 09:32 Lymph % (Auto) 16.6 % 02/08/25 09:32 Barren % (Auto) 8.6 % 02/08/25 09:32 Eos % (Auto) 0.5 % 02/08/25 09:32 Baso % (Auto) 1.0 % 02/08/25 09:32 Neut # (Auto) 6.95 10^3/uL (1.8-7.7) 02/08/25 09:32 Lymph # (Auto) 1.6 10^3/uL (0.8-4.8) 02/08/25 09:32 Barren # (Auto) 0.8 10^3/uL (0.2-0.9) 02/08/25 09:32 Eos # (Auto) 0.1 10^3/uL (0.0-0.8) 02/08/25 09:32 Baso # (Auto) 0.1 10^3/uL (0.0-0.1) 02/08/25 09:32 Nucleated RBC % (auto) 0 % 02/08/25 09:32 Nucleated RBCs # 0.0 /100WBC 02/08/25 09:32 Sodium 135 mmol/L (136-145) L 02/08/25 09:32 Potassium 3.8 mmol/L (3.5-5.1) 02/08/25 09:32 Chloride 103 mmol/L (98-107) 02/08/25 09:32 Carbon Dioxide 20 mmol/L (22-29) L 02/08/25 09:32 Anion Gap 15.8 (5-19) 02/08/25 09:32 BUN 8 mg/dL (6-20) 02/08/25 09:32 Creatinine 0.5 mg/dL (0.5-0.9) 02/08/25 09:32 GFR Calculation 143.9 mL/min (90-130) H 02/08/25 09:32 Glucose 83 mg/dL (65-115) 02/08/25 09:32 Calculated Osmolality 277 mOsm/kg (285-295) L 02/08/25 09:32 Calcium 8.7 mg/dL (8.5-10.5) 02/08/25 09:32 Total Bilirubin 0.3 mg/dL (0.15-1.2) 02/08/25 09:32 AST 13 U/L (0-32) 02/08/25 09:32 ALT 8 U/L (0-33) 02/08/25 09:32 Alkaline Phosphatase 41 U/L (35-105) 02/08/25 09:32 Total Protein 7.1 g/dL (6.6-8.7) 02/08/25 09:32 Albumin 3.8 g/dL (3.5-5.2) 02/08/25 09:32 Globulin 3.3 g/dL (1.3-4.6) 02/08/25 09:32 Ser , Semi-Qnt 64264.00 mIU/mL 02/08/25 09:32 Blood Type A Positive 02/08/25 09:32 Rho(D) Type Rh positive 02/08/25 09:32 All radiology interpretation(s) finalized by discharge Discharge Plan Discharge Patient Disposition: Home Clinical Impression: Subchorionic hemorrhage in first trimester Condition: Stable Prescriptions: No Action cyclobenzaprine 10 mg tablet 10 mg PO TID Qty: 14 0RF Discharge Orders: Discharge ED (Routine); Ordered 02/08/25 Ordered By: Apollo Garcia Referrals: Joe Wolfe MD [Primary Care Provider, [facility]] Patient Instructions: Patient Portal & [facility]cci Instructions Activity Restrictions/Additional Instructions: First Trimester Bleeding Discharge You were seen today for a small amount of vaginal bleeding during your at 12 weeks. Your ultrasound showed a healthy baby and a small area of bleeding called a subchorionic hemorrhage. This is a common finding and, in most cases, does not cause problems for the . What to expect: - Light vaginal bleeding in early is common and often resolves on its own. - Most women with a subchorionic hemorrhage go on to have healthy pregnancies. - There is no strong evidence that bed rest or special medications help in these cases unless you have a history of multiple miscarriages. Activity: - You may continue your normal daily activities unless you experience heavy bleeding or severe pain. - There is no need for strict bed rest. When to seek medical attention: - Heavy vaginal bleeding (soaking through a pad in an hour or less) - Severe abdominal pain or cramping - Dizziness, fainting, or feeling very weak - Fever or chills Follow-up: - Please keep your scheduled follow-up appointment with your courtroom clerk to monitor the hemorrhage and ensure it resolves. - If you have a history of previous miscarriages, discuss with your doctor whether progesterone treatment may be appropriate. Reassurance: - Your baby is healthy at this time, and your lab results are reassuring. - Most women with early bleeding and a subchorionic hemorrhage have good outcomes If you have any questions or concerns before your next appointment, please contact your healthcare provider. Print Language: Tuvaluan Coding Level of Care Code ED Coding Clerks Supervisor for Gertrude Vasquez
[2025-02-08 09:40] LABS: Hematocrit 32.1 % (36-47); Hemoglobin 9.60 g/dL (11.27-16.99); Mean Corpuscular HGB Conc 29.9 g/dL (30-55); Mean Corpuscular Hemoglobin 22.5 pg (27-33); Mean Corpuscular Volume 75.4 fl (85-98); Nucleated Red Blood Cells % 0 %; Platelet Count 474 10^3/cmm (157-399); Red Blood Count 4.26 10^6/uL (3.85-5.65); White Blood Count 9.62 10^3/uL (3.29-11.43)
[2025-02-08 10:10] LABS: Alanine Aminotransferase 8 U/L (0-33); Albumin Level 3.8 g/dL (3.5-5.2); Alkaline Phosphatase 41 U/L (35-105); Anion Gap 15.8 (5-19); Aspartate Amino Transferase 13 U/L (0-32); Blood Urea Nitrogen 8 mg/dL (6-20); Calcium 8.7 mg/dL (8.5-10.5); Carbon Dioxide 20 mmol/L (22-29); Chloride 103 mmol/L (98-107); Globulin 3.3 g/dL (1.3-4.6); Glucose 83 mg/dL (65-115); Osmolality Calculated 277 mOsm/kg (285-295); Potassium 3.8 mmol/L (3.5-5.1); Sodium 135 mmol/L (136-145); Total Protein 7.1 g/dL (6.6-8.7)
[2025-02-08 10:31] VITALS: BP 131/72; PULSE 83; O2SAT 100
[2025-02-08 10:38] LABS: Glucose Urine UA Negative (Normal); Nitrate Urine Negative (Negative); Specific Gravity, Urine 1.022 (1.005-1.030)
== END 2025-02-08 10:33 | disposition home or self-care (01) ==
PROVIDERS: Emergency Medicine; Emergency Provider Physician Assistant; PCP Family Medicine
DX: O20.8 Other hemorrhage in early pregnancy (principal); Z3A.12 12 weeks gestation of pregnancy
CPT/HCPCS: 36415; 76801; 80053; 81001; 84702; 85025; 86900; 99284